=== PATIENT | female | born 1950 | race Caucasian/White ===

== ENCOUNTER 2020-12-10 08:02 | Outpatient (CLI) | payer MEDICARE, SELFPAY ==
--- NOTE | ~2020-12-10 | MM_ITS ---
EXAMINATION: MM screening [facility] BI w júnior HISTORY: Screening mammogram TECHNIQUE: Craniocaudal and mediolateral oblique 3-D tomosynthesis images were obtained and synthetic 2-D images were generated. CAD analysis was submitted and interpreted. COMPARISON: 10/10/2019, 10/04/2018, 07/01/2017, 01/16/2016 bilateral digital screening mammogram examin ations BREAST PARENCHYMAL COMPOSITION: There are scattered areas of fibroglandular density. FINDINGS: Stable low-density circumscribed approximately 7 mm opacity is noted in the superomedial quarles bareolar right breast on craniocaudal view. There is no evidence of suspicious mass, calcification, o r architectural distortion to suggest malignancy in either breast. There has been no suspicious inter malachi change. IMPRESSION: 1. No mammographic evidence of malignancy. 2. Recommend routine screening mammography in one year. BI-RADS Category 2: Benign finding(s). Reviewed, dictated and finalized at location A. PHONE ENGINEER
== END 2020-12-10 08:03 | disposition home or self-care (01) ==
LOC: ANHIMG 08:06
PROVIDERS: PCP Internal Medicine; Visit Provider Obstetrics & Gynecology
DX: Z12.31 Encounter for screening mammogram for malignant neoplasm of breast (principal)
CPT/HCPCS: 77063; 77067

== ENCOUNTER 2021-02-18 08:55 | Outpatient (CLI) | payer MEDICARE, SELFPAY ==
--- NOTE | ~2021-02-18 | US_ITS ---
EXAMINATION: US pelvic complete w TV DATE: 02/18/2021 09:38 INDICATION: Postmenopausal bleeding Comparison:No prior studies for comparison. TECHNIQUE: Multiple transabdominal and endovaginal sonographic images of the pelvis performed. FINDINGS: The uterus measures 6.6 x 2.6 x 4.2 cm. The endometrial complex measures 3 mm. The right ovary measures 1.5 x 1.0 x 0.9 cm and the left ovary measures 1.7 x 1.1 x 1.0 cm. There ar e small follicles in each ovary. Normal doppler signal in both ovaries. There is no free fluid in the pelvis. There are no abnormal masses seen on either side. IMPRESSION: 1. Unremarkable pelvic ultrasound. Reviewed, dictated and finalized at location B.
== END 2021-02-18 08:56 | disposition home or self-care (01) ==
PROVIDERS: PCP Internal Medicine; Visit Provider Obstetrics & Gynecology
DX: N95.0 Postmenopausal bleeding (principal)
CPT/HCPCS: 76830; 76856

== ENCOUNTER 2021-12-18 10:17 | Outpatient (CLI) | payer MEDICARE, SELFPAY ==
--- NOTE | ~2021-12-18 | MM_ITS ---
EXAMINATION: MM screening [facility] BI w júnior HISTORY: Screening mammogram TECHNIQUE: Craniocaudal and mediolateral oblique 3-D tomosynthesis images were obtained and synthetic 2-D images were generated. CAD analysis was submitted and interpreted. COMPARISON: 12/10/2020, 10/10/2019, 10/04/2018, 07/01/2017 BREAST PARENCHYMAL COMPOSITION: The breasts are almost entirely fatty. FINDINGS: Stable masses in the anterior thirds of the breasts are considered benign given the lack of interval change. There is no evidence of suspicious mass, calcification, or architectural distortion to suggest malignancy in either breast. There has been no suspicious interval change. IMPRESSION: 1. No mammographic evidence of malignancy. 2. Recommend routine screening mammography in one year. BI-RADS Category 2: Benign finding(s). Reviewed, dictated and finalized at location A. BURSEMENT COORDINATOR
== END 2021-12-18 10:18 | disposition home or self-care (01) ==
PROVIDERS: PCP Internal Medicine; Visit Provider Obstetrics & Gynecology
DX: Z12.31 Encounter for screening mammogram for malignant neoplasm of breast (principal)
CPT/HCPCS: 77063; 77067

== ENCOUNTER 2022-04-14 12:44 | Outpatient (CLI) | payer MEDICARE, SELFPAY ==
--- NOTE | ~2022-04-14 | DEXA_ITS ---
Bone Density Report Name: DELFINO MONTIEL Age: 72 Sex: Female Ethnicity: White Date of : 1950 Indication: osteopenia; height loss; postmenopausal Referring Provider: LISA LIPSCOMB Study: Bone densitometry was performed. Exam Date: April 14, 2022 Accession number: [id number] Bone Density: Region BMD T-score Z-score Classification AP Spine(L1, L2, L3) 0.894 -1.1 1.0 Osteopenia Femoral Neck (Left) 0.628 -2.0 -0.1 Osteopenia Total Hip (Left) 0.761 -1.5 0.1 Osteopenia Femoral Neck (Right) 0.623 -2.0 -0.1 Osteopenia Total Hip (Right) 0.734 -1.7 -0.1 Osteopenia Total Hip Mean 0.748 -1.6 0.0 Osteopenia World Health Organization criteria for BMD impression classify patients as: Normal (T-score at or above -1.0), Osteopenia (T-score between -1.0 and -2.5), or Osteoporosis (T-score at or below -2.5). 10-year Fracture Risk(1): Major Osteoporotic Fracture 12% Hip Fracture 2.5% Reported Risk Factors: [place] (), Neck BMD=0.623, BMI=30.9 (1) FRAX(R) Version 3.08. Fracture probability calculated for an untreated patient. Fracture probability may be lower if the patient has received treatment. Previous Exams: Region Exam Age BMD T-score BMD Change BMD Change Date g/cm2 vs Baseline vs Previous AP Spine (L1-L3) 04/14/2022 72 0.894 -1.1 0.010 (1.2%) 0.010 (1.2%) 10/04/2018 68 0.884 -1.2 Total Hip(Left) 04/14/2022 72 0.761 -1.5 -0.069 (-8.3%) -0.069 (-8.3%) 10/04/2018 68 0.830 -0.9 Total Hip(Right) 04/14/2022 72 0.734 -1.7 -0.136 (-15.6% -0.136 (-15.6% 10/04/2018 68 0.870 -0.6 *Denotes significance at 95% confidence level, LSC for AP Spine = 0.022 g/cm2, LSC for Total Hip = 0.027 g/cm2 Clinical Information Provided by Patient: Patient maximum height was 64.5 Menopause Age: 50 Drinks caffeinated beverages Onset of menses at age 11 Number of children 3 Impression: The patient has low bone mass, based on the Left Femoral Neck T-score. The patient has an estimated ten-year risk of hip fracture of 2.5% and an estimated ten-year risk of major fracture of 12%, based on the WHO FRAX algorithm. The BMD for the Total Hip(Left) decreased, changing by -8.3% since the last DXA exam. The BMD for the Total Hip(Right) decreased, changing by -15.6% since the last DXA exam. Discussion: BONE DENSITY IS LOW AT ONE OR MORE SKELETAL SITES. This patient's lowest T-score is low at one or more skeletal sites. It meets
== END 2022-04-14 12:45 | disposition home or self-care (01) ==
PROVIDERS: PCP Internal Medicine; Visit Provider Internal Medicine
DX: M85.88 Other specified disorders of bone density and structure, other site (principal); M85.852 Other specified disorders of bone density and structure, left thigh; M85.851 Other specified disorders of bone density and structure, right thigh
CPT/HCPCS: 77080

== ENCOUNTER 2023-02-02 01:19 | Day surgery (SDC) | payer MEDICARE, SELFPAY ==
[2023-01-25 10:30] VITALS: BMI 32.0
[2023-02-02 06:51] VITALS: BP 114/72; PULSE 79; RESP 16; TEMP 36.2; O2SAT 98
[2023-02-02] MEDS: LACTATED RINGERS 1,000 ML 150 ML IV CONT (06:59)
--- NOTE | 2023-02-02 07:26 | PM.HPGS ---
History of Present Illness History of Present Illness Consent: Risks, benefits, and alternatives have been discussed and questions answered. Patient agrees to proceed with procedure. Chief complaint: hx colon polyps Narrative: Zari Brito is a 72 year old female Presents for colonoscopy. Patient has a history of adenomatous colon polyp removed from the colon in 2018. Patient's current weight appetite and bowel movements are normal. Patient denies abdominal pain. She has had no bleeding. Family history is Is significant that her brother has had multiple colon polyps. Patient presents today for neoplasia screening. Review of Systems Review of Systems: Review of systems noncontributory. [facility] Past Medical History Medical History Anxiety History of vaginal delivery x 3 Surgical History Surgical History Hx of tubal ligation Family History Family History Father Family history of coronary artery disease Family history of hypercholesterolemia Hypertension Grandparent Family history of coronary artery disease Mother Family history of lung cancer Social History Social History Smoking packs per day: 1 Smoking cigarettes per day: 20.0 Years smoked: 5 Smoking pack-years: 5.00 Smoking status: Former smoker Tobacco type: cigarettes Second hand tobacco smoke exposure: No Smoking end date: 11/22/13 Alcohol intake: never Substance use: never Substance use type: does not use Lack of Transportation: No Lack of Food: Never True Current Housing: I Have Housing Concerned About Future Housing: No Difficulty Paying Gas/Electric Bills: No Difficulty Paying for Meds: No Currently Unemployed: No Education: Bachelor's Degree Difficulty w/ Childcare or Family Care: No Living arrangements: with family Spiritual care concerns: No Meds Home Medications and Allergies Home Medications Medication Instructions Recorded Confirmed Type cholecalciferol (vitamin D3) 125 5,000 unit PO DAILY 11/03/19 01/25/23 History mcg (5,000 unit) disintegrating tablet inulin 2 gram chewable tablet 2 gm PO DAILY 11/03/19 01/07/23 History (Fiber Gummies) omega-3 250 cc-geq-yiw-lutein 2.5 250 cap PO DAILY 11/03/19 01/25/23 History mg-zeaxanthin 0.5 mg capsule ([facility]) amlodipine 5 mg tablet See Rx Instructions .Route 08/28/22 01/25/23 Rx .COMPLEX #90 tabs pravastatin 80 mg tablet See Rx Instructions .Route 08/28/22 02/02/23 Rx .COMPLEX #90 tabs olmesartan 20 mg tablet 20 mg PO DAILY #90 tabs 01/07/23 01/25/23 Rx omega-3 fatty acids 1,000 mg 2,000 mg PO DAILY 01/07/23 01/25/23 History capsule (Fish Oil Concentrate) Allergies Allergy/AdvReac Type Severity Reaction Status Date / Time No Known Allergies Allergy Verified 02/02/23 06:48 Vital Signs Vital Signs - 24 hr 02/02/23 06:51 Temperature 97.1 F L Pulse Rate 79 Respiratory Rate 16 Blood Pressure 114/72 Pulse Oximetry 98 Oxygen Delivery Room Air Exam Narrative: Physical exam reveals patient to be alert. Vital signs stable. HEENT exam is unremarkable. Patient is anicteric. Lungs are clear to auscultation and percussion. Heart is without murmur or extra sounds. Abdomen bowel sounds present soft nontender with no organomegaly. Digital external rectal exam is normal. Assessment and Plan Assessment and plan (1) History of colon polyps: Code(s): Z86.010 - Personal history of colonic polyps Status: Acute Assessment and Plan: Patient has had previous history of colon polyps. Her brother recently was found to have colon polyps l as well suggesting family history of colon polyps.Plan for surveillance colonoscopy now and at 5 year intervals.
--- NOTE | 2023-02-02 08:01 | WPDANESEPPF ---
Anes - Initial Pre Proc Eval Procedure: Operation Date: 02/02/23 08:00 Proposed Procedures p Colonoscopy - Nam Bruner MD Date/Time: 02/02/23 08:01 Surgeon: Nam Bruner MD Pre Op Diagnosis: hx colon polyps Patient Data Age: 72 Gender: F Height: 1.6 m Weight: 80.8 kg Last Vital Signs Temp 97.1 F L 02/02/23 06:51 Pulse 79 02/02/23 06:51 Resp 16 02/02/23 06:51 BP 114/72 02/02/23 06:51 Pulse Ox 98 02/02/23 06:51 O2 Del Method Room Air 02/02/23 06:51 Allergies Allergy/AdvReac Type Severity Reaction Status Date / Time No Known Allergies Allergy Verified 02/02/23 06:48 Home Medications Medication Instructions Recorded Confirmed Type cholecalciferol (vitamin D3) 125 5,000 unit PO DAILY 11/03/19 01/25/23 History mcg (5,000 unit) disintegrating tablet inulin 2 gram chewable tablet 2 gm PO DAILY 11/03/19 01/07/23 History (Fiber Gummies) omega-3 250 hp-clh-app-lutein 2.5 250 cap PO DAILY 11/03/19 01/25/23 History mg-zeaxanthin 0.5 mg capsule ([facility]) amlodipine 5 mg tablet See Rx Instructions .Route 08/28/22 01/25/23 Rx .COMPLEX #90 tabs pravastatin 80 mg tablet See Rx Instructions .Route 08/28/22 02/02/23 Rx .COMPLEX #90 tabs olmesartan 20 mg tablet 20 mg PO DAILY #90 tabs 01/07/23 01/25/23 Rx omega-3 fatty acids 1,000 mg 2,000 mg PO DAILY 01/07/23 01/25/23 History capsule (Fish Oil Concentrate) Patient hx anesthesia problems: none Family hx anesthesia problems: none Results Review: All pre-operative results and documents have been reviewed as part of the pre-operative evaluation. [facility] Past Medical History Medical History Anxiety History of vaginal delivery x 3 Surgical History Surgical History Hx of tubal ligation Family History Family History Father Family history of coronary artery disease Family history of hypercholesterolemia Hypertension Grandparent Family history of coronary artery disease Mother Family history of lung cancer Social History Social History Smoking packs per day: 1 Smoking cigarettes per day: 20.0 Years smoked: 5 Smoking pack-years: 5.00 Smoking status: Former smoker Tobacco type: cigarettes Second hand tobacco smoke exposure: No Smoking end date: 11/22/13 Alcohol intake: never Substance use: never Substance use type: does not use Lack of Transportation: No Lack of Food: Never True Current Housing: I Have Housing Concerned About Future Housing: No Difficulty Paying Gas/Electric Bills: No Difficulty Paying for Meds: No Currently Unemployed: No Education: Bachelor's Degree Difficulty w/ Childcare or Family Care: No Living arrangements: with family Spiritual care concerns: No Anes - Eval Final PreProcedure Day of Procedure 02/02/23 08:01 Patient weight: obese Heart: regular rate and rhythm Lungs: clear to auscultation Airway: Mallampati scale class II Neurological: alert and oriented Last oral intake: >/= 8 hours ASA classification: II Emergent: no Anesthetic plan: proceed Anesthesia type and monitoring: general GIVS and standard monitoring Results Review: All pre-operative results and documents have been reviewed as part of the pre-operative evaluation. Informed Consent: The patient's anesthetic plan and its attendant risks and benefits were discussed with the patient/family/POA. Questions were solicited and answers provided to the satisfaction of the patient/family/POA.
[2023-02-02] MEDS: SIMETHICONE ORAL SUSPENSION 20 MG/0.3 ML 30 ML BOTTLE 0.6 ML IRRIGATION (08:21)
[2023-02-02 08:30] VITALS: BP 125/73; PULSE 87; RESP 17; O2SAT 98
[2023-02-02 08:40] VITALS: BP 126/85; PULSE 90; RESP 15; O2SAT 98
[2023-02-02 08:50] VITALS: BP 131/79; PULSE 74; RESP 18; O2SAT 100
== END 2023-02-02 08:57 | disposition home or self-care (01) ==
PROVIDERS: PCP Internal Medicine; Visit Provider Internal Medicine Gastroenterology
PROC: 0DJD8ZZ Inspection of Lower Intestinal Tract, Via Natural or Artificial Opening Endoscopic (ICD-10-PCS; CPT 45378; principal; 2023-02-02 08:00)
DX: K64.8 Other hemorrhoids (principal); F41.9 Anxiety disorder, unspecified; E66.9 Obesity, unspecified; Z68.31 Body mass index [BMI] 31.0-31.9, adult; Z86.010 Personal history of colon polyps; Z87.891 Personal history of nicotine dependence; Z79.899 Other long term (current) drug therapy; Z83.71 Family history of colonic polyps
CPT/HCPCS: 45378; J2704; J7120

== ENCOUNTER 2023-03-16 07:21 | Outpatient (CLI) | payer MEDICARE, SELFPAY ==
--- NOTE | ~2023-03-16 | MM_ITS ---
EXAMINATION: MM screening [facility] BI w júnior HISTORY: Screening mammogram TECHNIQUE: Craniocaudal and mediolateral oblique 3-D tomosynthesis images were obtained and synthetic 2-D images were generated. CAD analysis was submitted and interpreted. COMPARISON: 12/18/2021, 12/10/2020, 10/10/2019 bilateral screening mammogram examinations BREAST PARENCHYMAL COMPOSITION: The breasts are almost entirely fatty. FINDINGS: Approximately 3 mm irregular mass is noted in the inferomedial left subareolar area. Diagno stic left mammogram and ultrasound recommended. Stable circumscribed low density opacity in the anterior superomedial right subareolar area, not sign ificantly changed since 10/10/2019. No other significant new or developing density since 10/10/2019 i s noted. IMPRESSION: 1. 3 mm irregular inferomedial left subareolar breast mass 2. Diagnostic left mammogram and ultrasound are recommended BI-RADS Category 0: Incomplete: Needs additional imaging evaluation. Reviewed, dictated and finalized at location A.
== END 2023-03-16 07:22 | disposition home or self-care (01) ==
PROVIDERS: PCP Internal Medicine; Visit Provider Nurse Practitioner
DX: Z12.31 Encounter for screening mammogram for malignant neoplasm of breast (principal); N63.42 Unspecified lump in left breast, subareolar
CPT/HCPCS: 77063; 77067

== ENCOUNTER 2023-04-06 12:55 | Outpatient (CLI) | payer MEDICARE, SELFPAY ==
--- NOTE | ~2023-04-06 | MM_ITS ---
EXAMINATION: MM diagnostic [facility] LT w júnior HISTORY: Left breast mass on screening mammogram TECHNIQUE: Additional 3-D tomosynthesis images of the left breast were performed and synthetic 2-D im ages were generated. CAD analysis was submitted and interpreted. COMPARISON: Prior mammograms dating back to 07/01/2017 FINDINGS: With spot compression, the subareolar left breast mass has a stable appearance when compare d to prior mammograms. There has been no suspicious interval change. No suspicious calcification or a rchitectural distortion are identified. IMPRESSION: 1. No mammographic evidence of malignancy. 2. Recommend routine screening mammography in one year. BI-RADS Category 2: Benign finding(s). Reviewed, dictated and finalized at location A.
== END 2023-04-06 12:56 | disposition home or self-care (01) ==
PROVIDERS: PCP Family Medicine; Visit Provider Nurse Practitioner
DX: N63.20 Unspecified lump in the left breast, unspecified quadrant (principal); R92.8 Other abnormal and inconclusive findings on diagnostic imaging of breast
CPT/HCPCS: 77061; 77065; G0279

== ENCOUNTER 2023-07-23 07:54 | Outpatient (CLI) | payer MEDICARE, SELFPAY ==
--- NOTE | ~2023-07-23 | CT_ITS ---
CT Scan of the Chest without Contrast: Clinical Indication: Lung cancer screening, personal history of nicotine dependence Technique: Contiguous sections were acquired throughout the chest without intravenous contrast. Dose reduction technique was used on this scan by utilizing automated exposure control and iterative recon struction technique. The dose-length product (DLP) was 148.61 mGy-cm. Findings: There is no evidence of any significant mediastinal, hilar or axillary lymphadenopathy. Small calcifi ed left hilar lymph nodes are present. The mediastinal soft tissues appear normal. Small hiatal herni a present. There is no evidence of pleural or pericardial effusion. Lung granulomas are present. No other pulmonary nodule seen. Images through the upper abdomen reveal no abnormalities. Impression: Lung RADS 2: Benign appearance. 12 month follow-up CT advised. Small hiatal hernia. Reviewed, dictated and finalized at [facility]. Impression: Lung RADS 2: Benign appearance. 12 month follow-up CT advised. Small hiatal hernia.
== END 2023-07-23 07:55 | disposition home or self-care (01) ==
LOC: ANHIMG 07:56
PROVIDERS: PCP Family Medicine; Visit Provider Family Medicine
DX: Z12.2 Encounter for screening for malignant neoplasm of respiratory organs (principal); Z87.891 Personal history of nicotine dependence
CPT/HCPCS: 71271

== ENCOUNTER 2024-05-17 12:34 | Outpatient (CLI) | payer MEDICARE, SELFPAY ==
--- NOTE | ~2024-05-17 | DEXA_ITS ---
? Bone Density Report? Name:? DELFINO MONTIEL Patient ID:??? [id number] Age:? 74 Sex:? Female Ethnicity:? White Date of : 1950 Indication: postmenopausal; screening for osteoporosis; height loss; Referring Provider: Bunny Mahan Study: Bone densitometry was performed. Exam Date: May 17, 2024 Accession number: [id number] Bone Density: Region? BMD??? T-score? Z-score?? Classification AP Spine(L1, L2, L3)? 0.825?? -1.8?0.5? Osteopenia Femoral Neck (Left)? 0.595?? -2.3? -0.3? Osteopenia Total Hip (Left)? 0.792?? -1.2? 0.5? Osteopenia Femoral Neck (Right)? 0.543?? -2.8? -0.7? Osteoporosis Total Hip (Right)? 0.763?? -1.5? 0.3? Osteopenia Femoral Neck Mean? 0.569?? -2.5? -0.5? Osteoporosis Total Hip Mean? 0.778?? -1.3? 0.4?Osteopenia World Health Organization criteria for BMD impression classify patients as: Normal (T-score at or above -1.0), Osteopenia (T-score between -1.0 and -2.5), or Osteoporosis (T-score at or below -2.5). 10-year Fracture Risk: FRAX not reported because: ? Some T-score for Spine Total or Hip Total or Femoral Neck at or below -2.5 Clinical Information Provided by Patient: Has used the following medications: Boniva (i.e. ibandronate), Fosamax (i.e. alendronate), Vitamin D, multi Patient maximum height was 64 Menopause Age: 42 No regular weight bearing exercise Does not regularly consume dairy products Drinks caffeinated beverages Onset of menses at age 11 Number of children 3 Impression: The patient has osteoporosis, based on the Right Femoral Neck T- score. Discussion: INCREASED RISK OF FRACTURE. BONE DENSITY IS UNDESIRABLY LOW AT ONE OR MORE SKELETAL SITES, CONSISTENT WITH POSTMENOPAUSAL OSTEOPOROSIS. This patient's lowest T-score meets the World Health Organization's (WHO) criteria for osteoporosis at one or more sites (T-score -2.5 or below).? In untreated patients, the risk of osteoporotic fracture increases approximately two-fold for each 1.0 SD decrease in T-score.? Low bone density is not the only risk factor for fracture; also consider factors such as patient's age, frailty or poor health, risk of falling, risk of injury, previous osteoporotic fracture, family history of osteoporosis, cigarette smoking, low body weight, etc.? Not everyone with low bone mineral density has osteoporosis; osteomalacia and other metabolic bone disorders should also be considered. Patients who have osteoporosis should be evaluated for specific diseases and conditions (secondary causes) that may cause or contribute to bone loss.? The [place] [employer]ocrin[employer] (AACE) and National Osteoporosis Foundation (NOF) recommend
--- NOTE | ~2024-05-17 | MM_ITS ---
EXAMINATION: MM screening [facility] BI w júnior HISTORY: Screening mammogram TECHNIQUE: Craniocaudal and mediolateral oblique 3-D tomosynthesis images were obtained and synthetic 2-D images were generated. CAD analysis was submitted and interpreted. COMPARISON: 04/06/2023, 03/16/2023, 12/18/2021 BREAST PARENCHYMAL COMPOSITION:Not Dense. The breasts are almost entirely fatty FINDINGS: Stable bilateral breast masses/densities. No suspicious mass, calcification, or architectur al distortion are identified in either breast to suggest malignancy. There has been no suspicious int erval change. IMPRESSION: No mammographic evidence of malignancy. Recommend routine screening mammography in one year. BI-RADS Category 2: Benign finding(s). Reviewed, dictated and finalized at location .
== END 2024-05-17 12:35 | disposition home or self-care (01) ==
PROVIDERS: PCP Family Medicine; Visit Provider Obstetrics & Gynecology
DX: Z12.31 Encounter for screening mammogram for malignant neoplasm of breast (principal); Z78.0 Asymptomatic menopausal state; M81.0 Age-related osteoporosis without current pathological fracture; M85.89 Other specified disorders of bone density and structure, multiple sites
CPT/HCPCS: 77063; 77067; 77080

== ENCOUNTER 2024-08-28 13:44 | Outpatient (CLI) | payer MEDICARE, SELFPAY ==
--- NOTE | ~2024-08-28 | CT_ITS ---
CT Scan of the Chest without Contrast: Clinical Indication: Lung cancer screening, nicotine dependence Technique: Contiguous sections were acquired throughout the chest without intravenous contrast. Dose reduction technique was used on this scan by utilizing automated exposure control and iterative recon struction technique. The dose-length product (DLP) was 161.33 mGy-cm. COMPARISON: 07/23/2023 Findings: There is no evidence of any significant mediastinal, hilar or axillary lymphadenopathy. The mediastin al soft tissues appear normal. There is no evidence of pleural or pericardial effusion. Calcified granulomas are noted. No noncalcified or otherwise suspicious pulmonary nodule seen. Images through the upper abdomen reveal small hiatal hernia. Impression: Lung RADS 2: Benign appearance. 12 month follow-up screening CT advised. Reviewed, dictated and finalized at [facility]. Impression: Lung RADS 2: Benign appearance. 12 month follow-up screening CT advised.
== END 2024-08-28 13:45 | disposition home or self-care (01) ==
PROVIDERS: PCP Family Medicine; Visit Provider Family Medicine
DX: Z12.2 Encounter for screening for malignant neoplasm of respiratory organs (principal); Z87.891 Personal history of nicotine dependence
CPT/HCPCS: 71271

== ENCOUNTER 2025-02-03 23:56 | Emergency (ER) | payer MEDICARE, SELFPAY ==
--- NOTE | ~2025-02-03 | XR_ITS ---
XR ankle RT min 3V Ordering provider: Kelsy Carolina MD History: . fall, pain and swelling . Comparison: None. FINDINGS: BONES: No acute fracture or dislocation. JOINT SPACES: Normal. SOFT TISSUES: Soft tissue swelling over the lateral malleolus. Fusion Calcaneal spur. IMPRESSION: No acute osseous abnormality of the right ankle. Reviewed, dictated and finalized at location A.
[2025-02-04 00:12] VITALS: BP 114/71; PULSE 74; RESP 16; TEMP 36.3; O2SAT 98
[2025-02-04 03:18] VITALS: BP 129/82; PULSE 75; RESP 17; O2SAT 97
--- NOTE | 2025-02-04 05:02 | ED_ITS ---
HPI - Extremity Injury (Lower) General Chief Complaint: Extremity Injury, Lower Stated Complaint: right leg/ ankle swelling Time Seen by Provider: 02/04/25 05:00 Source: patient Mode of arrival: ambulatory Limitations: no limitations History of Present Illness HPI Narrative: Patient presents with acute onset right ankle pain and swelling which is transferring from the couch to her bed and felt like her ankle gave out. Exact mechanism of injury (eversion/inversion/etc) unknown. No prior injury / surgery to this extremity. In the process she stumbled and also has a superficial abrasion to her left knee. No history of liver kidney disease or injury. Patient elevated her foot and placed ice on it which she stated helped it. At baseline, she has been trying to exercise more and stay active. Confirms her PCP is Marcin Arenas . Pain in the ankle is primarily the anterolateral aspect. She has not yet taken any oral pain medicine prior to arrival. Related Data Home Medications ?Medication ?Instructions ?Recorded ?Confirmed ?Last Taken ?Type cholecalciferol (vitamin D3) 125 5,000 unit PO DAILY 11/03/19 09/20/24 02/01/23 History mcg (5,000 unit) disintegrating tablet omega-3 250 th-egj-ezo-lutein 2.5 250 cap PO DAILY 11/03/19 09/20/24 02/01/23 History mg-zeaxanthin 0.5 mg capsule ([employer]) omega-3 fatty acids 1,000 mg 2,000 mg PO DAILY 01/07/23 09/20/24 02/01/23 History capsule (Fish Oil Concentrate) larewyotonvx-kbuibtqw-vhhrohs-folic 1 tablet PO DAILY 04/29/23 09/20/24 Unknown History acid 400 mcg-vit K1 20 mcg tablet (One-A-Day Women's 50 Plus) cetirizine 10 mg capsule (Zyrtec) 10 mg PO DAILY PRN allergies 05/02/24 09/20/24 Unknown History peg 400-propylene glycol 0.4 %-0.3 1 drp EACH EYE DAILY PRN Dry Eyes 05/02/24 09/20/24 Unknown History % eye drops (Systane Ultra) esomeprazole magnesium 20 mg 20 mg PO DAILY 07/27/24 09/20/24 Unknown History capsule,delayed release denosumab 60 mg/mL subcutaneous 60 mg subcut [id number] 01/30/25 Unknown History syringe (Prolia) Allergies Allergy/AdvReac Type Severity Reaction Status Date / Time No Known Allergies Allergy Verified 02/04/25 03:18 PMFSH Past Medical History Medical History Shingles Anxiety History of vaginal delivery x 3 Surgical History Surgical History Hx of tubal ligation Family History Family History Father Family history of coronary artery disease Family history of hypercholesterolemia Hypertension Grandparent Family history of coronary artery disease Mother Family history of lung cancer Social History Social History Smoking packs per day: 1 Smoking cigarettes per day: 20.0 Years smoked: 11 Smoking pack-years: 11.00 Smoking status: Former smoker Tobacco type: cigarettes Second hand tobacco smoke exposure: No Smoking end date: 11/22/13 Alcohol intake: never Substance use: never Substance use type: does not use Lack of Transportation: No Lack of Food: Never True Current Housing: I Have Housing Concerned About Future Housing: No Difficulty Paying Gas/Electric Bills: No Difficulty Paying for Meds: No Currently Unemployed: No Education: Bachelor's Degree Difficulty w/ Childcare or Family Care: No Living arrangements: with family Spiritual care concerns: No Exam Narrative: GENERAL: Well-appearing, well-nourished, and in no acute distress. HEAD: Normocephalic, atraumatic. EYES: Non injected, non icteric ENT: Nares clear, no rhinorrhea or epistaxis. NECK: Supple. CHEST: Speaking in full sentences. No respiratory distress. x HEART: Regular rate and rhythm. Strong palpable Dp pulse on R ABDOMEN: Soft, nondistended. EXTREMITIES: Normal range of motion. 5/5 strength with right ankle dorsiflexion, plantar flexion, eversion, inversion. Patient has infusion overlying lateral malleolus on the right extremity. Distal calf nontender to palpation or compression SKIN: Warm, dry. Superficial abrasion overlying anterior aspect of left without active bleeding. No laceration/abrasion at R ankle/foot. No ecchymosis on plantar aspect of R foot. NEURO: No focal deficits. Alert and oriented x3. Sensation intact throughout foot. PSYCH: Normal mood and affect. Course Vital Signs Vital signs: Vital Signs Temperature 97.4 F L 02/04/25 00:12 Pulse Rate 74 02/04/25 00:12 Respiratory Rate 16 02/04/25 00:12 Blood Pressure 114/71 02/04/25 00:12 Pulse Oximetry 98 02/04/25 00:12 Oxygen Delivery Room Air 02/04/25 00:12 Temperature 97.4 F L 02/04/25 00:12 Pulse Rate 75 02/04/25 03:18 Respiratory Rate 17 02/04/25 03:18 Blood Pressure 129/82 02/04/25 03:18 Pulse Oximetry 97 02/04/25 03:18 Oxygen Delivery Room Air 02/04/25 00:12 MDM - Extremity Injury (Lower) MDM Narrative Medical decision making narrative: Patient presents with acute onset right ankle pain and swelling when her ankle gave out when moving off of the couch. Exact mechanism of injury unknown. She did also stumble and has a small superficial abrasion on L knee. 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 In the emergency department she is afebrile with normal vital signs. No fracture/dislocation. Patient given analgesic medication. Discussed natural history/expected progression of injury and healing but that occult fractures and injuries can occur. Discussed R-I-C-E. Patient to be given MAGNO wrap. Advised patient follow-up with her primary care physician next approximately 5 days if pain not improving as she may need further intervention/work up (advanced imaging, alternative pain medication, physical therapy, etc.). Verifies understanding and amenable with plan. Stable for discharge. Prescribed [id number] analgesics medication. Differential Diagnosis Differential diagnosis: Likely ankle sprain and strain, ankle fracture and other (Dislocation) Imaging Data Attestation: I personally reviewed and interpreted this imaging study as follows: My impression: No fracture dislocation on my independent interpretation of x-ray. Discharge Plan Discharge Clinical Impression: Right ankle sprain Patient Disposition: Home, Self-Care Condition: Stable Instructions: Antibiotic Form, Ankle Sprain (DC), Ankle Strain (ED) Additional Instructions: As we discussed, remember R-I-C-E (rest, ice, compression, elevation). Acetaminophen/Tylenol (maximum 4000 mg per day) is safe to take with NSAIDs (ibu profen/Motrin) for pain relief. Follow-up with primary care physician if not improving in the next 3- 5 days as he may require additional workup (advanced imaging, alternative pain medication, physical therapy, etc.). Return to the emergency department with any new or worsening symptoms. Patient Language: [place] Prescriptions: New ibuprofen 600 mg tablet 600 mg PO TID PRN (Reason: pain) Qty: 30 0RF acetaminophen 500 mg capsule 1,000 mg PO Q6H PRN (Reason: pain) Qty: 30 0RF No Action Systane Ultra 0.4-0.3 % drops 1 drp EACH EYE DAILY PRN (Reason: Dry Eyes) Zyrtec 10 mg capsule 10 mg PO DAILY PRN (Reason: allergies) One-A-Day Women's 50 Plus 400-20 mcg tablet 1 tablet PO DAILY nystatin 100,000 unit/gram powder 1 applic topical TID PRN (Reason: rash) Qty: 60 2RF esomeprazole magnesium 20 mg capsule,delayed release(DR/EC) 20 mg PO DAILY Prolia 60 mg/mL syringe 60 mg subcut [id number] cholecalciferol (vitamin D3) 5,000 unit tablet,disintegrating 5,000 unit PO DAILY [facility] 250-2.5-0.5 mg capsule 250 cap PO DAILY omega-3 fatty acids [Fish Oil Concentrate] 1,000 mg capsule 2,000 mg PO DAILY esomeprazole magnesium 20 mg capsule,delayed release(DR/EC) See Rx Instructions .ROUTE .COMPLEX Qty: 90 0RF Dose Instruction: TAKE 1 CAPSULE BY MOUTH DAILY Rx Instructions: TAKE 1 CAPSULE BY MOUTH DAILY amlodipine 5 mg tablet See Rx Instructions .ROUTE .COMPLEX Qty: 90 0RF Dose Instruction: TAKE 1 TABLET BY MOUTH DAILY Rx Instructions: TAKE 1 TABLET BY MOUTH DAILY pravastatin 80 mg tablet See Rx Instructions .ROUTE .COMPLEX Qty: 90 0RF Dose Instruction: TAKE 1 TABLET BY MOUTH DAILY Rx Instructions: TAKE 1 TABLET BY MOUTH DAILY olmesartan 20 mg tablet 20 mg PO DAILY Qty: 90 1RF Follow-up/Referrals: Marcin Arenas MD [Primary Care Provider] - Stand Alone Forms: Work/School Release IP Time of Disposition: 05:12
[2025-02-04] MEDS: HYDROcodone/acetaminophen (*CRX) 5-325 MG TABLET 1 TAB PO (05:14)
[2025-02-04] MEDS: KETOROLAC 30 MG/ML VIAL (*BKC) 15 MG IM (05:15)
== END 2025-02-04 05:31 | disposition home or self-care (01) ==
LOC: ANHED 02-04 05:20
PROVIDERS: Emergency Provider Student in an Organized Health Care Education/Training Program; PCP Family Medicine
DX: S93.401A Sprain of unspecified ligament of right ankle, initial encounter (principal); Z87.891 Personal history of nicotine dependence; Z79.620 Long term (current) use of immunosuppressive biologic; Z79.899 Other long term (current) drug therapy; W18.40XA Slipping, tripping and stumbling without falling, unspecified, initial encounter
CPT/HCPCS: 73610; 96372; 99283; A9270; J1885

== ENCOUNTER 2025-04-10 09:27 | Inpatient (IN) | payer MEDICARE, SELFPAY ==
[2025-04-10] VITALS (11 sets, daily range): BP systolic 109–130; BP diastolic 63–80; PULSE 72–90; RESP 14–20; TEMP 36.4–36.8; O2SAT 94–100; BMI 33.8
--- NOTE | ~2025-04-10 | XR_ITS ---
XR chest 2V Ordering provider: Kelsy Carolina MD History: 75 years Female with . sob . Comparison: February 03, 2007 FINDINGS: MEDIASTINUM: The cardiac silhouette is not enlarged. LUNGS: No effusions or pneumothorax. Bilateral basal atelectasis versus pneumonia is noted. OTHER: No free air under the diaphragm. Degenerative changes of the spine. IMPRESSION: Bibasilar atelectasis versus pneumonia. Follow-up advised. Reviewed, dictated and finalized at location A.
--- NOTE | ~2025-04-10 | US_ITS ---
EXAMINATION: US venous doppler [facility] DATE: 04/10/2025 12:11 INDICATION: Pain TECHNIQUE: Grayscale ultrasound images without and with compression and Doppler ultrasound images of the bilateral lower extremity veins were obtained. COMPARISON: None. FINDINGS: The visualized portions of right common femoral vein, profunda (deep) femoral vein, femoral vein, pop liteal vein, peroneal veins, posterior tibial veins, and greater saphenous vein outflow are patent. The visualized portions of left common femoral vein, profunda femoral vein, femoral vein, popliteal v ein, posterior tibial veins, and greater saphenous vein outflow are patent. Noncompressibility and absence of flow is identified within the left peroneal vein which is distended , consistent with acute deep venous thrombosis. IMPRESSION: Acute DVT within the left peroneal vein, as detailed above Reviewed, dictated and finalized at location A.
--- NOTE | ~2025-04-10 | CT_ITS ---
CTA chest PE abdomen pel Ordering provider: Prema Guadarrama PA-C History: . L shoulder/chest pain, sob, pleuritic pain . Comparison: August 28, 2024 Technique: CT angiogram chest was performed following timed intravenous injection of contrast. Thin s lice axial images and reformatted coronal images were obtained. Three dimensional reformatted images of the chest were also obtained using a [employer] workstation. Also, CT of the abdomen and pelvis was pe rformed with IV contrast. . Automated exposure control and iterative reconstruction technique were e mployed. The dose-length product was 1265.96 mGy-cm. 100 mL Omnipaque 350 was given IV. FINDINGS: CHEST: --PULMONARY ARTERIES: pulmonary embolism is noted in the left and to lesser extent the right segmenta l branches. Minimal right ventricular strain is noted.. --VISUALIZED THORACIC INLET: Normal. --MEDIASTINUM: Aorta/coronary arteries: Mild atheromatous disease. Heart/other: The heart is not enlarged. Lymph nodes: No mediastinal or hilar adenopathy. --LUNGS: Groundglass appearance is seen in the right lung. Minimal left pleural effusion with adjacent atelect asis. No pulmonary nodules or masses. No pneumothorax. --MUSCULOSKELETAL: Bones: Age appropriate degenerative changes of the spine. Superficial soft tissues: The superficial soft tissues are normal. ABDOMEN/PELVIS: --MUSCULOSKELETAL: Superficial soft tissues: The superficial soft tissues are normal. Bones: Age appropriate degenerative changes of the spine. --UPPER ABDOMINAL ORGANS: Liver: Hepatomegaly. Gallbladder: Normal. Spleen: Normal. Stomach/duodenum: Large sliding hiatus hernia. Pancreas: Atrophic pancreas. Adrenals: Slightly prominent medial limb of the left adrenal gland.. Kidneys: Bilateral tiny cysts. --PELVIC ORGANS: The bladder is normal. No bladder stones. Prominent vessels around the uterus which may indicate pelvic congestion syndrome. Small left ovarian cyst measuring 1.8 cm. --BOWEL AND MESENTERY: Colon: No evidence of diverticulitis.. Normal appendix. Small Bowel: Normal. No obstruction. Peritoneum/mesentery: No free air or free fluid. No mesenteric lymphadenopathy. --RETROPERITONEUM: Mild atheromatous disease of the abdominal aorta. No retroperitoneal lymphadenop athy. IMPRESSION: CHEST: 1. Pulmonary embolism with thrombi in the segmental branches. Minimal right ventricular strain. ABDOMEN/PELVIS: 1. No evidence of appendicitis, diverticulitis or intestinal obstruction. 2. Sliding hiatus hernia. 3. Hepatomegaly. 4. Prominent vessels in the pelvis which may indicate pelvic congestion syndrome. 5. Atrophic pancreas. Physician: Prema Guadarrama PA-C Was notified with the result of the patient at 12:12 PM on April 10, 2025. Reviewed, dictated and finalized at location A. IMPRESSION: CHEST: 1. Pulmonary embolism with thrombi in the segmental branches. Minimal right ve ntricular strain. ABDOMEN/PELVIS: 1. No evidence of appendicitis, diverticulitis or intestinal obstruction. 2. Sliding hiatus hernia. 3. Hepatomegaly. 4. Prominent vessels in the pelvis which may indicate pelvic congestion syndro me. 5. Atrophic pancreas. Physician: Prema Guadarrama PA-C Was notified with the result of the patient at 12:12 PM on April 10, 2025.
--- NOTE | 2025-04-10 09:38 | ECG_ITS ---
Test Date: 2025-04-10 09:41:53 Measurements Intervals [place] Rate: 87 P: 30 FL: 161 QRS: 37 QRSD: 118 T: 21 QT: 367 QTc: 442 Interpretive Statements SINUS RHYTHM LOW QRS VOLTAGE IN PRECORDIAL LEADS [QRS DEFLECTION < 1.0 mV IN CHEST LEADS] INCOMPLETE RIGHT BUNDLE BRANCH BLOCK [90+ ms QRS DURATION, TERMINAL R IN V1/V2, 40+ ms S IN I/aVL/V4/V5/V6] No previous ECG available for comparison Electronically Signed On 04-10-2025 13:41:24 CDT by Danial Gan M.D.
[2025-04-10 10:11] LABS: Alanine Aminotransferase 21 U/L (6-35); Albumin Level 4.1 g/dL (3.5-5.1); Alkaline Phosphatase 55 U/L (38-126); Anion Gap 7 mmol/L (4-12); Aspartate Amino Transferase 32 U/L (14-36); Bilirubin,Total 0.6 mg/dL (0.2-1.3); Blood Urea Nitrogen 12 mg/dL (7-17); Calcium 8.7 mg/dL (8.4-10.2); Carbon Dioxide 25 mmol/L (22-30); Chloride 107 mmol/L (98-107); Estimated CRCL calculation 71 ml/min; Estimated Glomerular Filt Rate > 60; Glucose 99 mg/dL (65-110); Potassium 4.2 mmol/L (3.4-5.0); Sodium 139 mmol/L (137-145)
[2025-04-10 10:13] LABS: Basophils Percent Auto 0.5 % (0.2-1.2); Eosinophils Absolute Auto 0.1 K/mm3 (0-0.3); Eosinophils Percent Auto 1.5 % (0-4.4); Hemoglobin 12.6 g/dL (12.0-15.0); Immature Granulocyte Absolute 0.02 K/mm3 (0.00-0.031); Immature Granulocyte Percent A 0.3 % (0-0.5); Lymphocytes Absolute Auto 1.29 K/mm3 (0.9-3.2); Lymphocytes Percent Auto 17.5 % (18.3-44.2); Mean Corpuscular HGB Conc 32.3 g/dl (32-36); Mean Corpuscular Volume 89.9 fl (80-100); Mean Platelet Volume 9.9 fl (7.4-10.4); Monocytes Absolute Auto 0.6 K/mm3 (0.1-0.6); Monocytes Percent Auto 8.7 % (2.6-8.5); Neutrophils Absolute Auto 5.3 K/mm3 (1.3-6.7); Neutrophils Percent Auto 71.5 % (45.5-73.1); Platelet Count Result 318 k/mm3 (150-375); Red Blood Count 4.34 M/mm3 (4.2-5.4); Red Cell Distribution Width 14.4 % (11.5-14.5); White Blood Count 7.4 K/mm3 (4.5-10.0)
[2025-04-10 10:46] LABS: Troponin I < 0.012 ng/mL (0.000-0.034)
--- NOTE | 2025-04-10 11:28 | ED_ITS ---
HPI - SOB/Dyspnea General Chief Complaint: Shortness of Breath/Dyspnea <Prema Guadarrama PA-C - Last Filed: 04/10/25 13:13> Stated Complaint: SOB, left shoulder pain <Prema Guadarrama PA-C - Last Filed: 04/10/25 13:13> Time Seen by Provider: 04/10/25 09:47 <Prema Guadarrama PA-C - Last Filed: 04/10/25 13:13> Source: patient <RAJENDRA Penny Last Filed: 04/10/25 13:13> Mode of arrival: ambulatory <RAJENDRA Penny Last Filed: 04/10/25 13:13> Limitations: no limitations <RAJENDRA Penny Last Filed: 04/10/25 13:13> History of Present Illness HPI Narrative: Patient is a 75-year-old female, with PMH of HTN, HLD, who presents the ED with report of shortness of breath. Patient reports she recently traveled to and from [place]. Over the past weekend, she had been experiencing some shortness of breath, dyspnea with exertion. She also report having intermittent aching/cramping in her legs, pleuritic pain, spasms in her left upper abdomen. She took ibuprofen for this with improvement. She returned home on Wednesday and report having persistent symptoms when she woke up this morning. Also report having some discomfort throughout her left shoulder, left anterior chest. She denied having chest pain over the weekend with exertion. She mentions that the abdominal pain has resolved. Denies recent cough or cold symptoms, fevers. Denies history of previous heart disease. <Prema Guadarrama PA-C - Last Filed: 04/10/25 13:13> Related Data Home Medications: Home Medications ?Medication ?Instructions ?Recorded ?Confirmed ?Last Taken ?Type cholecalciferol (vitamin D3) 125 5,000 unit PO DAILY 11/03/19 04/10/25 04/10/25 History mcg (5,000 unit) disintegrating tablet omega-3 250 gd-uzg-grw-lutein 2.5 250 cap PO DAILY 11/03/19 04/10/25 04/10/25 History mg-zeaxanthin 0.5 mg capsule ([facility]) omega-3 fatty acids 1,000 mg 2,000 mg PO DAILY 01/07/23 04/10/25 04/10/25 History capsule (Fish Oil Concentrate) peg 400-propylene glycol 0.4 %-0.3 1 drp EACH EYE DAILY PRN Dry Eyes 05/02/24 04/10/25 04/10/25 History % eye drops (Systane Ultra) esomeprazole magnesium 20 mg 20 mg PO DAILY 07/27/24 04/10/25 04/09/25 History capsule,delayed release denosumab 60 mg/mL subcutaneous 60 mg subcut [id number] 01/30/25 04/10/25 Unknown History syringe (Prolia) <Prema Guadarrama PA-C - Last Filed: 04/10/25 13:13> Allergies/Adverse Reactions: Allergies Allergy/AdvReac Type Severity Reaction Status Date / Time No Known Allergies Allergy Verified 04/10/25 09:41 <RAJENDRA Penny Last Filed: 04/10/25 13:13> Review of Systems 2 Review of Systems: All systems reviewed & are unremarkable except as noted in HPI. <RAJENDRA Penny Last Filed: 04/10/25 13:13> All systems reviewed & are unremarkable except as noted in HPI and below < Prema Guadarrama PA-C - Last Filed: 04/10/25 13:13> [facility] Past Medical History Medical History: Medical History Pulmonary embolism 04/10/2025, post-travel DVT (deep venous thrombosis) 04/10/2025, post-travel GERD (gastroesophageal reflux disease) Age related osteoporosis Mixed hyperlipidemia Essential (primary) hypertension Shingles Anxiety History of vaginal delivery x 3 <RAJENDRA Penny Last Filed: 04/10/25 13:13> Surgical History Surgical History: Surgical History Hx of tubal ligation <RAJENDRA Penny Last Filed: 04/10/25 13:13> Family History Family History: Family History Father Family history of coronary artery disease Family history of hypercholesterolemia Hypertension Grandparent Family history of coronary artery disease Mother Family history of lung cancer <RAJENDRA Penny Last Filed: 04/10/25 13:13> Social History Social History: Social History Smoking packs per day: 1 Smoking cigarettes per day: 20.0 Years smoked: 11 Smoking pack-years: 11.00 Smoking status: Former smoker Tobacco type: cigarettes Second hand tobacco smoke exposure: No Smoking end date: 04/10/25 Alcohol intake: never Substance use: never Substance use type: does not use Do You Feel Safe in your Home?: Yes Lack of Transportation: No Lack of Food: Never True Current Housing: I Do Not Have Housing Concerned About Future Housing: No Difficulty Paying Gas/Electric Bills: No Difficulty Paying for Meds: No Currently Unemployed: No Education: Bachelor's Degree Difficulty w/ Childcare or Family Care: No Living arrangements: with family Spiritual care concerns: No <RAJENDRA Penny Last Filed: 04/10/25 13:13> Exam 2 Narrative: GENERAL: Elderly but well appearing, obese with BMI of 30.6, non-toxic, in no acute distress. HEAD: Normocephalic, atraumatic. RESPIRATORY: Airway patent, respirations nonlabored. Mild rhonchi in bases bilaterally. No distress. CARDIOVASCULAR: Regular rate and rhythm without murmurs, rubs, or gallops. ABDOMINAL: Soft, no significant tenderness, nondistended. Normoactive BS. MUSCULOSKELETAL: Moves all extremities. No gross deformities. Very mild tenderness to palpation over left anterior chest wall. No appreciable to peripheral edema. No calf tenderness. SKIN: Warm, dry, normal color. NEURO: A&O X3. Speech clear. Cranial nerves II-XII grossly intact. Steady gait. No ataxic movements. PSYCHIATRIC: Appropriate mood and affect. Normal interaction. <RAJENDRA Penny Last Filed: 04/10/25 13:13> Course INSTALL AND REPAIR TECHNICIAN/PA Physician Supervision For this patient encounter, I reviewed the INSTALL AND REPAIR TECHNICIAN or PA documentation, treatment plan, and medical decision making; and I had dudk-go-avax time with this patient. <Aleks Castillo MD - Last Filed: 04/10/25 20:12> Vital Signs Vital signs: Vital Signs Temperature 97.8 F 04/10/25 09:39 Pulse Rate 90 04/10/25 09:39 Respiratory Rate 14 04/10/25 09:39 Blood Pressure 130/76 04/10/25 09:39 Pulse Oximetry 100 04/10/25 09:39 Temperature 98.3 F 04/10/25 15:39 Pulse Rate 77 04/10/25 18:00 Respiratory Rate 18 04/10/25 15:39 Blood Pressure 109/69 04/10/25 15:39 Pulse Oximetry 95 04/10/25 15:39 Oxygen Delivery Room Air 04/10/25 09:42 <Prema Guadarrama PA-C - Last Filed: 04/10/25 13:13> Vital Signs Temperature 97.8 F 04/10/25 09:39 Pulse Rate 90 04/10/25 09:39 Respiratory Rate 14 04/10/25 09:39 Blood Pressure 130/76 04/10/25 09:39 Pulse Oximetry 100 04/10/25 09:39 Temperature 98.3 F 04/10/25 15:39 Pulse Rate 77 04/10/25 18:00 Respiratory Rate 18 04/10/25 15:39 Blood Pressure 109/69 04/10/25 15:39 Pulse Oximetry 95 04/10/25 15:39 Oxygen Delivery Room Air 04/10/25 09:42 <Aleks Castillo MD - Last Filed: 04/10/25 20:12> MDM - SOB/Dyspnea MDM Narrative Medical decision making narrative: Patient presented to ED with shortness of breath, dyspnea with exertion over the past weekend, now with left upper chest pain that began today. Vital signs are stable upon arrival. EKG with incomplete right bundle-branch block, no concerning ST changes. Baseline troponin undetectable. BNP within normal range. Basic laboratory studies are otherwise fairly unremarkable. No leukocytosis or anemia. Stable electrolytes. Stable kidney function. Normal range. Viral swabs are negative. Chest x-ray with bibasilar atelectasis versus pneumonia. Patient does have some rhonchi on exam. Given recent travel with new shortness of breath, pleuritic pain, leg pain -venous Doppler ultrasound was obtained and showing L peroneal vein DVT. CTA of chest/abdomen/pelvis was obtained and showing bilateral segmental PE, minimal right ventricular strain. No saddle embolism. Discussed lab and imaging findings with patient. Given presence of DVT/PE with acute symptomatology, right ventricular strain. Will start heparin and admit to hospitalist service. Patient denies previous history of blood clots. Aside from recent travel, no significant risk factors. She is in agreement with plan and need for admission. Discussed case with Reyna Esquivel NP hospitalist, accepted patient for admission. <Prema Guadarrama PA-C - Last Filed: 04/10/25 13:13> Medical Records Attestation: I reviewed the patient's medical records. <Prema Guadarrama PA-C - Last Filed: 04/10/25 13:13> Lab Data Attestation: I reviewed the patient's lab results. <Prema Guadarrama PA-C - Last Filed: 04/10/25 13:13> Result diagrams: 04/10/25 09:52 04/10/25 09:52 <Prema Guadarrama PA-C - Last Filed: 04/10/25 13:13> Labs: Lab Results 04/10/25 04/10/25 04/10/25 Range/Units 09:52 11:23 12:58 WBC 7.4 (4.5-10.0) K/mm3 RBC 4.34 (4.2-5.4) M/mm3 Hgb 12.6 (12.0-15.0) g/dL Hct 39.0 (37.0-47.0) % MCV 89.9 (80-100) fl MCH 29.0 (26-34) pg MCHC 32.3 (32-36) g/dl RDW 14.4 (11.5-14.5) % Plt Count 318 (150-375) k/mm3 MPV 9.9 (7.4-10.4) fl Immature Gran % (Auto) 0.3 (0-0.5) % Neut % (Auto) 71.5 (45.5-73.1) % Lymph % (Auto) 17.5 L (18.3-44.2) % [place] % (Auto) 8.7 H (2.6-8.5) % Eos % (Auto) 1.5 (0-4.4) % Baso % (Auto) 0.5 (0.2-1.2) % Lymph # (Auto) 1.29 (0.9-3.2) K/mm3 [place] # (Auto) 0.6 (0.1-0.6) K/mm3 Eos # (Auto) 0.1 (0-0.3) K/mm3 Baso # (Auto) 0.0 (0.0-0.1) K/mm3 Abs Immat Gran (auto) 0.02 (0.00-0.031) K/mm3 Absolute Neuts (auto) 5.3 (1.3-6.7) K/mm3 Absolute Nucleated RBC 0.000 (0.0-0.012) K/mm3 Nucleated RBC % 0.0 (0.0-0.2) % Sodium 139 (137-145) mmol/L Potassium 4.2 (3.4-5.0) mmol/L Chloride 107 (98-107) mmol/L Carbon Dioxide 25 (22-30) mmol/L Anion Gap 7 (4-12) mmol/L BUN 12 (7-17) mg/dL Creatinine 0.62 L (0.7-1.0) mg/dL Estim Creat Clear Calc 71 ml/min Estimated GFR > 60 (59 - ) Glucose 99 (65-110) mg/dL Calcium 8.7 (8.4-10.2) mg/dL Magnesium 1.9 (1.6-2.3) mg/dL Total Bilirubin 0.6 (0.2-1.3) mg/dL AST 32 (14-36) U/L ALT 21 (6-35) U/L Alkaline Phosphatase 55 (38-126) U/L Troponin I < 0.012 < 0.012 (0.000-0.034) ng/mL NT-Pro-B Natriuret Pep 101 H (19.9-100) pg/mL Total Protein 8.0 (6.3-8.2) g/dL Albumin 4.1 (3.5-5.1) g/dL Influenza A (RT-PCR) Negative (Negative) Influenza B (RT-PCR) Negative (Negative) RSV (RT-PCR) Negative (Negative) SARS-CoV-2 RNA (RT-PCR) Negative (Negative) <Prema Guadarrama PA-C - Last Filed: 04/10/25 13:13> Lab Results 04/10/25 04/10/25 04/10/25 Range/Units 09:52 11:23 12:58 WBC 7.4 (4.5-10.0) K/mm3 RBC 4.34 (4.2-5.4) M/mm3 Hgb 12.6 (12.0-15.0) g/dL Hct 39.0 (37.0-47.0) % MCV 89.9 (80-100) fl MCH 29.0 (26-34) pg MCHC 32.3 (32-36) g/dl RDW 14.4 (11.5-14.5) % Plt Count 318 (150-375) k/mm3 MPV 9.9 (7.4-10.4) fl Immature Gran % (Auto) 0.3 (0-0.5) % Neut % (Auto) 71.5 (45.5-73.1) % Lymph % (Auto) 17.5 L (18.3-44.2) % [place] % (Auto) 8.7 H (2.6-8.5) % Eos % (Auto) 1.5 (0-4.4) % Baso % (Auto) 0.5 (0.2-1.2) % Lymph # (Auto) 1.29 (0.9-3.2) K/mm3 [place] # (Auto) 0.6 (0.1-0.6) K/mm3 Eos # (Auto) 0.1 (0-0.3) K/mm3 Baso # (Auto) 0.0 (0.0-0.1) K/mm3 Abs Immat Gran (auto) 0.02 (0.00-0.031) K/mm3 Absolute Neuts (auto) 5.3 (1.3-6.7) K/mm3 Absolute Nucleated RBC 0.000 (0.0-0.012) K/mm3 Nucleated RBC % 0.0 (0.0-0.2) % Sodium 139 (137-145) mmol/L Potassium 4.2 (3.4-5.0) mmol/L Chloride 107 (98-107) mmol/L Carbon Dioxide 25 (22-30) mmol/L Anion Gap 7 (4-12) mmol/L BUN 12 (7-17) mg/dL Creatinine 0.62 L (0.7-1.0) mg/dL Estim Creat Clear Calc 71 ml/min Estimated GFR > 60 (59 - ) Glucose 99 (65-110) mg/dL Calcium 8.7 (8.4-10.2) mg/dL Magnesium 1.9 (1.6-2.3) mg/dL Total Bilirubin 0.6 (0.2-1.3) mg/dL AST 32 (14-36) U/L ALT 21 (6-35) U/L Alkaline Phosphatase 55 (38-126) U/L Troponin I < 0.012 < 0.012 (0.000-0.034) ng/mL NT-Pro-B Natriuret Pep 101 H (19.9-100) pg/mL Total Protein 8.0 (6.3-8.2) g/dL Albumin 4.1 (3.5-5.1) g/dL Influenza A (RT-PCR) Negative (Negative) Influenza B (RT-PCR) Negative (Negative) RSV (RT-PCR) Negative (Negative) SARS-CoV-2 RNA (RT-PCR) Negative (Negative) <Aleks Castillo MD - Last Filed: 04/10/25 20:12> Imaging Data Attestation: I personally reviewed and interpreted this imaging study as follows: < Prema Guadarrama PA-C - Last Filed: 04/10/25 13:13> Radiologist's impression: ITS Impressions Chest X-Ray 04/10/25 10:41 IMPRESSION: Bibasilar atelectasis versus pneumonia. Follow-up advised. Chest/Abdomen/Pelvis CTA 04/10/25 11:45 IMPRESSION: CHEST: 1. Pulmonary embolism with thrombi in the segmental branches. Minimal right ventricular strain. ABDOMEN/PELVIS: 1. No evidence of appendicitis, diverticulitis or intestinal obstruction. 2. Sliding hiatus hernia. 3. Hepatomegaly. 4. Prominent vessels in the pelvis which may indicate pelvic congestion syndrome. 5. Atrophic pancreas. Physician: Prema Guadarrama PA-C Was notified with the result of the patient at 12:12 PM on April 10, 2025. Venous Doppler Study 04/10/25 12:12 IMPRESSION: Acute DVT within the left peroneal vein, as detailed above <Prema Guadarrama PA-C - Last Filed: 04/10/25 13:13> ECG Data EKG #1: Attestation: I personally reviewed and interpreted this ECG as follows: <Prema Guadarrama PA-C - Last Filed: 04/10/25 13:13> ECG completion date: 04/10/25 <RAJENDRA Penny Last Filed: 04/10/25 13:13> ECG completion time: 09:41 <RAJENDRA Penny Last Filed: 04/10/25 13:13> EKG Interpretation: normal rate (87), sinus rhythm, non-specific ST changes and RBBB (incomplete) <Prema Guadarrama PA-C - Last Filed: 04/10/25 13:13> Discharge Plan Discharge Clinical Impression: Pulmonary embolism, bilateral, Acute deep vein thrombosis of left peroneal vein <Prema Guadarrama PA-C - Last Filed: 04/10/25 13:13> Patient Disposition: Still a Patient <RAJENDRA Penny Last Filed: 04/10/25 13:13> Condition: Stable <Prema Guadarrama PA-C - Last Filed: 04/10/25 13:13>
[2025-04-10 12:02] LABS: Magnesium 1.9 mg/dL (1.6-2.3)
[2025-04-10 12:13] LABS: NT Pro B Type Natriuretic Pept 101 pg/mL (19.9-100)
[2025-04-10 12:13] LABS: Influenza A QL RT-PCR Negative (Negative); Influenza B QL RT-PCR Negative (Negative); RSV RNA, RT-PCR Negative (Negative); SARS-CoV-2 RNA PCR Negative (Negative)
[2025-04-10] MEDS: CYCLOBENZAPRINE HCL 5 MG TABLET PO (12:22)
[2025-04-10] MEDS: ACETAMINOPHEN 500 MG TABLET 1000 MG PO (12:23)
[2025-04-10] MEDS: HEPARIN SODIUM 5,000 UNITS/ML VIAL 5500 UNITS IV PUSH (12:44)
[2025-04-10] MEDS: HEPARIN SOD/D5W 100 UNITS/ML 25,000 UNITS/250 ML BAG 12 UNITS IV CONT (12:45)
--- NOTE | 2025-04-10 12:48 | ECG_ITS ---
Test Date: 2025-04-10 12:53:08 Measurements Intervals [place] Rate: 83 P: 27 PA: 176 QRS: 38 QRSD: 130 T: 17 QT: 391 QTc: 461 Interpretive Statements SINUS RHYTHM RIGHT BUNDLE BRANCH BLOCK [120+ ms QRS DURATION, UPRIGHT V1, 40+ ms S IN I/aVL/V4/V5/V6] Compared to ECG 04/10/2025 09:41:53 NO SIGNIFICANT CHANGES Electronically Signed On 04-10-2025 13:45:17 CDT by Danial Gan M.D.
--- NOTE | 2025-04-10 12:49 | PM.IMHP ---
H&P: HPI History of Present Illness Date/Time: 04/10/25 12:49 Chief Complaint: Exertional Shortness of Breath Narrative: 75 y/o F with PMH of HLD, HTN, and anxiety presents here with exertional shortness of breath. The patient presents here from plan for further evaluation of exertional shortness of breath. She reports onset approximately 4 days ago while she was on vacation in [place]. She reports travel to and from [place] via car. She describes the shortness of breath as exertional and noted while walking. It is accompanied by left upper abdominal pain that has since resolved, left anterior chest pain, and intermittent cramping in her bilateral lower extremities. She has taken ibuprofen for the symptoms with some improvement in her symptoms. She denies accompanying chest pain, hemoptysis, no recent surgeries, and no current use of hormones. Reports a previous history of smoking, cessation 11 years ago. Initial VS at presentation: 97.8? F, HR 90, R 14, 130/76, and 100% on RA. ED workup showed: No leukocytosis, no anemia, no significant electrolyte derangements, creatinine 0.62 and GFR >60, BNP 101, and initial troponin negative. CXR showed bibasilar atelectasis versus pneumonia. Chest/abdomen/pelvis CTA showed a pulmonary embolism with thrombi in the segmental branches and minimal right ventricular strain, sliding hiatus hernia, hepatomegaly, prominent vessels in pelvic which may indicate pelvic congestion syndrome, atrophic pancreas. US BLE showed an acute DVT within the left peroneal vein. Review of Systems Review of Systems: All systems reviewed & are unremarkable except as noted in HPI and below PMFSH Past Medical History Medical History Pulmonary embolism 04/10/2025, post-travel DVT (deep venous thrombosis) 04/10/2025, post-travel GERD (gastroesophageal reflux disease) Age related osteoporosis Mixed hyperlipidemia Essential (primary) hypertension Shingles Anxiety History of vaginal delivery x 3 Surgical History Surgical History Hx of tubal ligation Family History Family History Father Family history of coronary artery disease Family history of hypercholesterolemia Hypertension Grandparent Family history of coronary artery disease Mother Family history of lung cancer Social History Social History Smoking packs per day: 1 Smoking cigarettes per day: 20.0 Years smoked: 11 Smoking pack-years: 11.00 Smoking status: Former smoker Tobacco type: cigarettes Second hand tobacco smoke exposure: No Smoking end date: 04/10/25 Alcohol intake: never Substance use: never Substance use type: does not use Do You Feel Safe in your Home?: Yes Lack of Transportation: No Lack of Food: Never True Current Housing: I Do Not Have Housing Concerned About Future Housing: No Difficulty Paying Gas/Electric Bills: No Difficulty Paying for Meds: No Currently Unemployed: No Education: Bachelor's Degree Difficulty w/ Childcare or Family Care: No Living arrangements: with family Spiritual care concerns: No Meds Home Medications and Allergies Home Medications ?Medication ?Instructions ?Recorded ?Confirmed ?Type cholecalciferol (vitamin D3) 125 5,000 unit PO DAILY 11/03/19 04/10/25 History mcg (5,000 unit) disintegrating tablet omega-3 250 [id number]-lutein 2.5 250 cap PO DAILY 11/03/19 04/10/25 History mg-zeaxanthin 0.5 mg capsule ([facility]) omega-3 fatty acids 1,000 mg 2,000 mg PO DAILY 01/07/23 04/10/25 History capsule (Fish Oil Concentrate) peg 400-propylene glycol 0.4 %-0.3 1 drp EACH EYE DAILY PRN Dry Eyes 05/02/24 04/10/25 History % eye drops (Systane Ultra) esomeprazole magnesium 20 mg 20 mg PO DAILY 07/27/24 04/10/25 History capsule,delayed release olmesartan 20 mg tablet 20 mg PO DAILY #90 tabs 12/29/24 04/10/25 Rx denosumab 60 mg/mL subcutaneous 60 mg subcut [id number] 01/30/25 04/10/25 History syringe (Prolia) acetaminophen 500 mg capsule 1,000 mg (2 x 500 mg) PO Q6H PRN 02/04/25 04/10/25 Rx pain #30 caps amlodipine 5 mg tablet See Rx Instructions .Route 02/12/25 04/10/25 Rx .COMPLEX #90 tabs pravastatin 80 mg tablet See Rx Instructions .Route 02/12/25 04/10/25 Rx .COMPLEX #90 tabs Allergies Allergy/AdvReac Type Severity Reaction Status Date / Time No Known Allergies Allergy Verified 04/10/25 09:41 Vital Signs Vital Signs - 24 hr 04/10/25 09:39 04/10/25 09:42 04/10/25 09:42 Temperature 97.8 F Pulse Rate 90 85 Respiratory Rate 14 Blood Pressure 130/76 Pulse Oximetry 100 Oxygen Delivery Room Air Exam Const: General: comfortable and no acute distress Other: , female, nontoxic appearance HENMT: Face/Nose/Sinus: Normal nares present Mouth: Yes moist mucous membranes Eyes: General: appearance normal, both eyes and all related structures Sclera: sclerae normal Pupils: Equal, round and reactive pupils present EOM: EOMs intact bilaterally Resp: Effort & Inspection: normal respiratory effort Auscultation: clear to auscultation bilaterally Cardio: Rate: regular rate Rhythm: regular rhythm Other: S1-S2 present without murmur, rub, ectopy GI: Other: Abdomen soft, nondistended, nontender. Normoactive bowel sounds in all quadrants. Skin: General skin exam: normal color and no rashes or lesions noted Wounds: no wounds Neuro: Speech: normal speech Motor exam (neuro): 5/5 motor strength present throughout Sensory Exam: normal sensation Other: A&O x4 Extrem: Other: Mild tenderness to the left calf to. Trace edema to bilateral ankles, symmetric. No other abnormalities. Psych: Mental Status: mental status grossly normal Affect: normal affect Other: Good insight and judgment, very pleasant H&P: Results Labs Labs: Short CBC 04/10/25 Range/Units 09:52 WBC 7.4 (4.5-10.0) K/mm3 Hgb 12.6 (12.0-15.0) g/dL Hct 39.0 (37.0-47.0) % Plt Count 318 (150-375) k/mm3 BMP 04/10/25 09:52 Sodium 139 Potassium 4.2 Chloride 107 Carbon Dioxide 25 BUN 12 Creatinine 0.62 L Glucose 99 Calcium 8.7 Cardiac Enzymes 04/10/25 Range/Units 09:52 Troponin I < 0.012 (0.000-0.034) ng/mL Liver Function 04/10/25 Range/Units 09:52 Total Bilirubin 0.6 (0.2-1.3) mg/dL AST 32 (14-36) U/L ALT 21 (6-35) U/L Alkaline Phosphatase 55 (38-126) U/L Albumin 4.1 (3.5-5.1) g/dL Assessment and Plan Assessment and plan (1) Pulmonary embolism: Qualifiers: Pulmonary embolism type: multiple subsegmental (without acute cor pulmonale) Qualified Code(s): I26.94 - Multiple subsegmental thrombotic pulmonary emboli without acute cor pulmonale Code(s): I26.99 - Other pulmonary embolism without acute cor pulmonale Status: Acute Assessment and Plan: - CXR: Bibasilar atelectasis versus pneumonia. Follow-up advised. - CTA chest/abdomen/pelvis: CHEST: 1. Pulmonary embolism with thrombi in the segmental branches. Minimal right ventricular strain. ABDOMEN/PELVIS: 1. No evidence of appendicitis, diverticulitis or intestinal obstruction. 2. Sliding hiatus hernia. 3. Hepatomegaly. 4. Prominent vessels in the pelvis which may indicate pelvic congestion syndrome. 5. Atrophic pancreas. - +for DVT, see below - started on heparin gtt on 04/10. Will hold off on transitioning patient to p.o. anticoagulation until echo results. - check echo, minimal right ventricular strain seen on CT - monitor CBC - troponin negative x1, check 3 hr - no current supplemental O2 requirement, monitor (2) DVT (deep venous thrombosis): Qualifiers: Affected thrombotic vein of extremity: peroneal Chronicity: acute DVT location: lower extremity Laterality: left Qualified Code(s): I82.452 - Acute embolism and thrombosis of left peroneal vein Code(s): I82.409 - Acute embolism and thrombosis of unspecified deep veins of unspecified lower extremity Status: Acute Assessment and Plan: - US LE BLE: Acute DVT within the left peroneal vein - started on heparin on 04/10 (3) Pneumonia: Qualifiers: Laterality: right Lung location: unspecified part of lung Pneumonia type: due to unspecified organism Qualified Code(s): J18.9 - Pneumonia, unspecified organism Code(s): J18.9 - Pneumonia, unspecified organism Status: Acute Assessment and Plan: - CTA chest abdomen pelvis showed a ground-glass opacity in the right lung - started on ceftriaxone IV and azithromycin p.o. on 04/10 - supportive care - monitor WBC - no current supplemental O2 requirement, monitor (4) Essential (primary) hypertension: Code(s): I10 - Essential (primary) hypertension Status: Chronic Assessment and Plan: - chronic, currently 111/75 - continue home medications: Amlodipine, olmesartan - monitor Plan Diet: Heart healthy GI Prophylaxis: Not currently indicated DVT Prophylaxis: Heparin gtt IV fluids: None Lines/Tubes: Peripheral IV Code Status: Full code Quality VTE Prophylaxis VTE prophylaxis: pharmacologic ordered Hospitalist [facility] Advance Care Plan I have confirmed that the patient's Advanced Care Plan is present, code status is documented, or surrogate decision maker is listed in patient medical record.: Yes Medication Reconciliation I have utilized all available resources to obtain, update and review the patients current medications (includes all prescriptions, OTC, herbals, cannabis, and nutritional supplements).: Yes
[2025-04-10] MEDS: AZITHROMYCIN 250 MG TABLET 1000 MG PO (13:42)
[2025-04-10 13:43] LABS: Troponin I < 0.012 ng/mL (0.000-0.034)
--- NOTE | 2025-04-10 14:27 | ADMGEN ---
This patient, Zari Brito, was admitted to IMU Room 200-01. Patient/family oriented to hospital policies and general routines including ID bracelet, bed and alarms, visiting hours, pain management, procedures, bathroom and other care routines, personal items, smoking policy, room service/diet, and visiting hours. Information on how to activate the Rapid Response Team has been discussed. Patient/Family are encouraged to report perceived risks to care and to ask questions if they do not understand what they are told or what they should do.
[2025-04-10 20:10] LABS: Partial Thromboplastin Time 68.4 Seconds (22.3-36.8)
[2025-04-10] MEDS: HEPARIN SODIUM 5,000 UNITS/ML VIAL 2500 UNITS IV PUSH (20:48)
[2025-04-11] VITALS (18 sets, daily range): BP systolic 102–133; BP diastolic 56–80; PULSE 68–82; RESP 14–18; TEMP 36.4–36.8; O2SAT 93–98
[2025-04-11 02:55] LABS: Basophils Percent Auto 0.7 % (0.2-1.2); Eosinophils Absolute Auto 0.2 K/mm3 (0-0.3); Eosinophils Percent Auto 3.3 % (0-4.4); Hemoglobin 11.4 g/dL (12.0-15.0); Immature Granulocyte Absolute 0.01 K/mm3 (0.00-0.031); Immature Granulocyte Percent A 0.2 % (0-0.5); Lymphocytes Absolute Auto 1.81 K/mm3 (0.9-3.2); Lymphocytes Percent Auto 31.4 % (18.3-44.2); Mean Corpuscular HGB Conc 31.7 g/dl (32-36); Mean Corpuscular Hemoglobin 28.9 pg (26-34); Mean Corpuscular Volume 91.1 fl (80-100); Mean Platelet Volume 9.6 fl (7.4-10.4); Monocytes Absolute Auto 0.5 K/mm3 (0.1-0.6); Monocytes Percent Auto 8.5 % (2.6-8.5); Neutrophils Absolute Auto 3.2 K/mm3 (1.3-6.7); Neutrophils Percent Auto 55.9 % (45.5-73.1); Platelet Count Result 294 k/mm3 (150-375); Red Blood Count 3.95 M/mm3 (4.2-5.4); Red Cell Distribution Width 14.4 % (11.5-14.5); White Blood Count 5.8 K/mm3 (4.5-10.0)
[2025-04-11 03:10] LABS: Anion Gap 6 mmol/L (4-12); Blood Urea Nitrogen 11 mg/dL (7-17); Calcium 8.4 mg/dL (8.4-10.2); Carbon Dioxide 27 mmol/L (22-30); Chloride 107 mmol/L (98-107); Estimated CRCL calculation 63 ml/min; Estimated Glomerular Filt Rate > 60; Glucose 98 mg/dL (65-110); Sodium 140 mmol/L (137-145)
[2025-04-11 03:12] LABS: Partial Thromboplastin Time 71.4 Seconds (22.3-36.8)
--- NOTE | 2025-04-11 06:00 | ECHO_ITS ---
Patient Info Name: Zari Brito Age: 75 years : 1950 Gender: Female Ht: 62 in Wt: 185 lbs BSA: 1.95 m2 HR: 85 bpm BP: 117 / 71 mmHg Heart Rhythm: Sinus Rhythm Technical Quality: Fair Exam Date: 04/11/2025 9:51 AM Patient Status: I Admit Date: 04/10/2025 Exam Type: CA echo doppler color flow Complete two-dimensional, color flow and Doppler transthoracic echocardiogram is performed. Staff Referring Physician: Prema Guadarrama Rechecker: Falguni Bell Attending Provider: Christiano Kelley Summary 1. Complete two-dimensional, color flow and Doppler transthoracic echocardiogram is performed. 2. Left ventricular chamber dimension is normal. 3. Left ventricular systolic function is normal, estimated at 65-70. 4. There is mildly increased left ventricular wall thickness. 5. The left ventricular diastolic function is grade I diastolic dysfunction. 6. Left atrial chamber dimension is mildly enlarged. 7. There is mild aortic valve sclerosis. 8. There is mild mitral valve regurgitation. 9. There is mild tricuspid valve regurgitation. 10. Mild pulmonary hypertension, estimated pulmonary arterial systolic pressure is 36 mmHg. 11. There is mild pulmonic regurgitation. Left Ventricle Left ventricular chamber dimension is normal. Left ventricular systolic function is normal, estimated at 65-70. There is mildly increased left ventricular wall thickness. The left ventricular diastolic function is grade I diastolic dysfunction. Right Ventricle Right ventricular chamber dimension is normal. Right ventricular systolic function is normal. Left Atria Left atrial chamber dimension is mildly enlarged. Right Atria Right atrial chamber dimension is normal. Atrial Septum Intact interatrial septum visualized by color flow imaging. Aortic Valve The aortic valve is trileaflet. There is mild aortic valve sclerosis. There is no aortic valve stenosis. There is trace aortic valve regurgitation. Pulmonic Valve The pulmonic valve is normal. There is no pulmonic valve stenosis. There is mild pulmonic regurgitation. Mitral Valve The mitral valve has normal leaflets. There is no mitral valve stenosis. There is mild mitral valve regurgitation. Tricuspid Valve The tricuspid valve leaflets are normal. There is no significant tricuspid valve stenosis. There is mild tricuspid valve regurgitation. Mild pulmonary hypertension, estimated pulmonary arterial systolic pressure is 36 mmHg. Pericardium/Pleural The pericardium appears normal. There is no pericardial effusion. Inferior Vena Cava Normal inferior vena cava with <50% collapse upon inspiration consistent with elevated right atrial pressure, 10 mmHg. Left Ventricular Outflow Tract Name Value Normal LVOT 2D LVOT Diameter 2.0 cm LVOT Doppler LVOT Peak Velocity 118 cm/s LVOT Peak Gradient 6 mmHg LVOT Mean Gradient 3 mmHg LVOT VTI 25 cm LVOT VTI/AV VTI Ratio 0.8 LVOT Stroke Volume 78 ml LVOT CO 5.4 l/min LVOT CI 2.8 l/min/m2 Pulmonic Valve Name Value Normal RVOT Doppler RVOT Peak Velocity 65 cm/s RVOT Peak Gradient 2 mmHg PV Doppler PV Peak Velocity 85 cm/s PV Peak Gradient 3 mmHg Mitral Valve Name Value Normal MV Diastolic Function MV E Peak Velocity 73 cm/s MV A Peak Velocity 89 cm/s MV E/A 0.8 MV Decel Time (PW) 272 ms MV Annular TDI MV E/e' (Septal) 11.0 MV E/e' (Lateral) 12.5 MV E/e' (Average) 11.7 Tricuspid Valve Name Value Normal TV Regurgitation Doppler TR Peak Velocity 255 cm/s TR Peak Gradient 26 mmHg Estimated PAP/RSVP RA Pressure 10 mmHg <=5 PA Systolic Pressure 36 mmHg <36 RV Systolic Pressure 36 mmHg <36 TV Annular TDI TV Lateral Damari s' Velocity 10.8 cm/s >=9.5 Aortic Valve Name Value Normal AV Doppler AV Peak Velocity 149 cm/s AV Peak Gradient 9 mmHg AV Mean Gradient 5 mmHg AV VTI 32 cm AV Area (Cont Eq VTI) 2.4 cm2 >=3.0 AV Area (Cont Eq John) 2.5 cm2 AV DI (John) 0.80 AV Regurgitation 2D LVOT Area 3.1 cm2 Ventricles Name Value Normal LV Dimensions 2D/MM IVS Diastolic Thickness (2D) 1.1 cm 0.6-1.0 LVID Diastole (2D) 4.8 cm 3.8-5.2 LVIW Diastolic Thickness (2D) 1.0 cm 0.6-0.9 LVID Systole (2D) 3.3 cm 2.2-3.5 LVOT Diameter 2.0 cm LV Mass (2D Cubed) 173.12 g 67.00-162.00 LV Mass Index (2D Cubed) 89 g/m2 43-95 Relative Wall Thickness (2D) 0.40 <=0.42 LV Fractional Shortening/Ejection Fraction 2D/MM LV Fractional Shortening (2D) 30 % 27-45 LV EF (2D Teichholz) 58 % LV Diastolic Volume (4C MOD) 113 ml LV EF (4C MOD) 72 % LV Diastolic Volume (2C MOD) 109 ml LV EF (2C MOD) 80 % LV Diastolic Volume (BP MOD) 112 ml 46-106 LV Diastolic Volume Index (BP MOD) 57 ml/m2 29-61 LV Systolic Volume (BP MOD) 27 ml 14-42 LV Systolic Volume Index (BP MOD) 14 ml/m2 8-24 LV EF (BP MOD) 76 % 54-74 LV Diastolic Length (4C) 8.0 cm LV Systolic Length (4C) 6.9 cm LV Stroke Volume (4C MOD) 81 ml Atria Name Value Normal LA Dimensions LA Volume (4C A-L) 51 ml LA Volume (BP A-L) 45 ml RA Dimensions RA Systolic Major [place] Length (4C) 4.4 cm 2.2-2.8 RA Area (4C) 14.8 cm2 <=18.0 Report Signatures
[2025-04-11] MEDS: HEPARIN SOD/D5W 100 UNITS/ML 25,000 UNITS/250 ML BAG 13 UNITS IV CONT (08:01)
[2025-04-11] MEDS: OPTI-GEN TAB 1 TABLET PO (08:03)
[2025-04-11] MEDS: OMEGA 3 POLYUNSAT FATTY ACIDS 1 GM CAP 2 GM PO (08:03)
[2025-04-11] MEDS: OLMESARTAN MEDOXOMIL 20 MG TABLET PO (08:04)
[2025-04-11] MEDS: PRAVASTATIN SODIUM 20 MG TABLET 80 MG PO (08:04)
[2025-04-11] MEDS: PANTOPRAZOLE 40 MG TABLET PO (08:04)
[2025-04-11] MEDS: amLODIPine BESYLATE 5 MG TABLET PO (08:05)
[2025-04-11] MEDS: CHOLECALCIFEROL 5,000 UNITS TABLET 5000 UNITS PO (08:05)
--- NOTE | 2025-04-11 09:20 | PM.IMPN ---
Progress Note: A&P Assessment and Plan (1) Pulmonary embolism: Qualifiers: Pulmonary embolism type: multiple subsegmental (without acute cor pulmonale) Qualified Code(s): I26.94 - Multiple subsegmental thrombotic pulmonary emboli without acute cor pulmonale Code(s): I26.99 - Other pulmonary embolism without acute cor pulmonale Status: Acute Assessment and Plan: - CXR: Bibasilar atelectasis versus pneumonia. Follow-up advised. - CTA chest/abdomen/pelvis: CHEST: 1. Pulmonary embolism with thrombi in the segmental branches. Minimal right ventricular strain. ABDOMEN/PELVIS: 1. No evidence of appendicitis, diverticulitis or intestinal obstruction. 2. Sliding hiatus hernia. 3. Hepatomegaly. 4. Prominent vessels in the pelvis which may indicate pelvic congestion syndrome. 5. Atrophic pancreas. - +for DVT, see below - started on heparin gtt on 04/10. Will hold off on transitioning patient to p.o. anticoagulation until echo results. - check echo, minimal right ventricular strain seen on CT - monitor CBC - troponin negative x1, check 3 hr - no current supplemental O2 requirement, monitor (2) DVT (deep venous thrombosis): Qualifiers: Affected thrombotic vein of extremity: peroneal Chronicity: acute DVT location: lower extremity Laterality: left Qualified Code(s): I82.452 - Acute embolism and thrombosis of left peroneal vein Code(s): I82.409 - Acute embolism and thrombosis of unspecified deep veins of unspecified lower extremity Status: Acute Assessment and Plan: - US LE BLE: Acute DVT within the left peroneal vein - started on heparin on 04/10 (3) Pneumonia: Qualifiers: Laterality: right Lung location: unspecified part of lung Pneumonia type: due to unspecified organism Qualified Code(s): J18.9 - Pneumonia, unspecified organism Code(s): J18.9 - Pneumonia, unspecified organism Status: Acute Assessment and Plan: - CTA chest abdomen pelvis showed a ground-glass opacity in the right lung - started on ceftriaxone IV and azithromycin p.o. on 04/10 - supportive care - monitor WBC - no current supplemental O2 requirement, monitor (4) Essential (primary) hypertension: Code(s): I10 - Essential (primary) hypertension Status: Chronic Assessment and Plan: - chronic, currently 111/75 - continue home medications: Amlodipine, olmesartan - monitor Plan Diet: Heart healthy GI Prophylaxis: Not currently indicated DVT Prophylaxis: Heparin gtt IV fluids: None Lines/Tubes: Peripheral IV Code Status: Full code Subjective Date/time seen: 04/11/25 09:20 Interval history: Patient had a vacation in [place] and was returning back by driving. Started with the chest pain and shortness of breath. Patient is currently admitted due to pulmonary embolism and left leg DVT. Currently on heparin drip. Possibly will switch to oral anticoagulant tomorrow. Echocardiogram reviewed no evidence of right heart strain Review of Systems Review of Systems: All systems reviewed & are unremarkable except as noted in HPI and below Exam Narrative: ok Const: General: comfortable and no acute distress Other: , female, nontoxic appearance HENMT: Face/Nose/Sinus: Normal nares present Mouth: Yes moist mucous membranes Eyes: General: appearance normal, both eyes and all related structures Sclera: sclerae normal Pupils: Equal, round and reactive pupils present EOM: EOMs intact bilaterally Resp: Effort & Inspection: normal respiratory effort Auscultation: clear to auscultation bilaterally Cardio: Rate: regular rate Rhythm: regular rhythm Other: S1-S2 present without murmur, rub, ectopy GI: Other: Abdomen soft, nondistended, nontender. Normoactive bowel sounds in all quadrants. Skin: General skin exam: normal color and no rashes or lesions noted Wounds: no wounds Neuro: Cranial nerves: Yes Equal, round and reactive pupils present Speech: normal speech Motor exam (neuro): 5/5 motor strength present throughout Sensory Exam: normal sensation Other: A&O x4 Extrem: Other: Mild tenderness to the left calf to. Trace edema to bilateral ankles, symmetric. No other abnormalities. Psych: Mental Status: mental status grossly normal Affect: normal affect Other: Good insight and judgment, very pleasant Objective Data Vital Signs Vital Signs: Vital Signs - 24 hr 04/10/25 09:39 04/10/25 09:42 04/10/25 09:42 Temperature 97.8 F Pulse Rate 90 85 Respiratory Rate 14 Blood Pressure 130/76 Pulse Oximetry 100 Oxygen Delivery Room Air 04/10/25 12:56 04/10/25 13:38 04/10/25 14:25 Temperature 97.9 F Pulse Rate 89 81 75 Respiratory Rate 20 20 18 Blood Pressure 111/75 123/80 125/65 Pulse Oximetry 100 98 95 Oxygen Delivery 04/10/25 15:39 04/10/25 16:00 04/10/25 18:00 Temperature 98.3 F Pulse Rate 74 77 77 Respiratory Rate 18 Blood Pressure 109/69 Pulse Oximetry 95 Oxygen Delivery 04/10/25 20:00 04/10/25 20:00 04/10/25 20:00 Temperature 97.6 F Pulse Rate 73 77 77 Respiratory Rate 17 17 Blood Pressure 109/63 Pulse Oximetry 94 94 Oxygen Delivery Room Air 04/10/25 22:00 04/10/25 23:50 04/10/25 23:50 Temperature Pulse Rate 72 74 74 Respiratory Rate 17 Blood Pressure Pulse Oximetry 94 Oxygen Delivery Room Air 04/11/25 00:00 04/11/25 02:00 04/11/25 03:53 Temperature 97.6 F 97.6 F Pulse Rate 82 74 70 Respiratory Rate 18 17 Blood Pressure 102/56 L 117/71 Pulse Oximetry 94 93 Oxygen Delivery 04/11/25 04:00 04/11/25 04:00 04/11/25 05:38 Temperature Pulse Rate 71 71 78 Respiratory Rate 17 Blood Pressure Pulse Oximetry 93 Oxygen Delivery Room Air 04/11/25 07:31 04/11/25 08:00 Temperature 98.1 F Pulse Rate 73 Respiratory Rate 14 Blood Pressure 103/80 Pulse Oximetry 95 95 Oxygen Delivery Room Air Intake/Output Intake/Output: Intake & Output 04/08/25 04/09/25 04/10/25 04/11/25 23:59 23:59 23:59 23:59 Intake Total 576.8 1091.6 Output Total 550 Balance 26.8 1091.6 Meds/Results Medications: Active Medications Generic Name Dose Route Start Last Admin Trade Name Freq PRN Reason Stop Dose Admin Acetaminophen 650 mg 04/10/25 12:28 Acetaminophen 325 Mg Tablet PO Q4H PRN Mild Pain (1-3) or Fever Amlodipine Besylate 5 mg 04/11/25 09:00 04/11/25 08:05 Amlodipine Besylate 5 Mg Tablet PO 5 mg DAILY MURIEL Administration Artificial Tears 1 drop 04/10/25 21:21 Artificial Tears Ophth Soln 15 Ml Bottle EACH EYE DAILY PRN Dry Eye(s) Azithromycin 500 mg 04/11/25 13:00 Azithromycin 250 Mg Tablet PO Q24H MURIEL Benzonatate 100 mg 04/10/25 12:58 Benzonatate 100 Mg Capsule PO TID PRN Cough Fish Oil 2 gm 04/11/25 09:00 04/11/25 08:03 [place] 3 Polyunsat Fatty Acids 1 Gm Cap PO 2 gm DAILY MURIEL Administration Guaifenesin 600 mg 04/10/25 12:58 Guaifenesin 12 Hr 600 Mg Tabcr PO Q12HR PRN Congestion Heparin Sodium (Porcine) 5,500 units 04/10/25 12:17 Heparin Sodium 5,000 Units/Ml Vial IV PUSH PRN PRN aPTT less than 55 seconds Heparin Sodium (Porcine) 2,500 units 04/10/25 12:17 04/10/25 20:48 Heparin Sodium 5,000 Units/Ml Vial IV PUSH 2,500 units PRN PRN Administration aPTT 55 - 70 seconds Heparin Sodium/Dextrose 25,000 units in 250 mls @ 13 mls/hr 04/10/25 12:20 04/11/25 08:01 Heparin Sodium/D5w 100 Units/Ml IV CONT 1,300 units/hr .[id number] MURIEL 13 mls/hr Administration Protocol 1,300 UNITS/HR Ceftriaxone Sodium 1 gm in 50 mls @ 100 mls/hr 04/10/25 12:00 04/10/25 13:43 Rocephin 1 Gm/Ns 50 Ml IVPB 100 mls/hr Q24H MURIEL Administration Multivitamins/Minerals 1 tablet 04/11/25 09:00 04/11/25 08:03 Opti-Gen Tab PO 1 tablet QAM MURIEL Administration Olmesartan 20 mg 04/11/25 09:00 04/11/25 08:04 Olmesartan Medoxomil 20 Mg Tablet PO 20 mg DAILY MURIEL Administration Ondansetron HCl 4 mg 04/10/25 12:28 Ondansetron Inj 4 Mg/2 Ml Vial IV PUSH Q4H PRN Nausea Pantoprazole Sodium 40 mg 04/11/25 09:00 04/11/25 08:04 Pantoprazole 40 Mg Tablet PO 40 mg QAM MURIEL Administration Perflutren Lipid Microsphere 0 ml 04/10/25 12:28 Perflutren Lipid Microspheres 1.5 Ml Vial Diluted To 10 Ml Total Volume IV PUSH 04/13/25 12:29 ONCE PRN adequate visualization Protocol Pravastatin Sodium 80 mg 04/11/25 09:00 04/11/25 08:04 Pravastatin Sodium 20 Mg Tablet PO 80 mg DAILY MURIEL Administration Vitamin D 5,000 units 04/11/25 09:00 04/11/25 08:05 Cholecalciferol 5,000 Units Tablet PO 5,000 units DAILY MURIEL Administration Radiology Results: ITS Impressions Chest X-Ray 04/10/25 10:41 IMPRESSION: Bibasilar atelectasis versus pneumonia. Follow-up advised. Chest/Abdomen/Pelvis CTA 04/10/25 11:45 IMPRESSION: CHEST: 1. Pulmonary embolism with thrombi in the segmental branches. Minimal right ventricular strain. ABDOMEN/PELVIS: 1. No evidence of appendicitis, diverticulitis or intestinal obstruction. 2. Sliding hiatus hernia. 3. Hepatomegaly. 4. Prominent vessels in the pelvis which may indicate pelvic congestion syndrome. 5. Atrophic pancreas. Physician: Prema Guadarrama PA-C Was notified with the result of the patient at 12:12 PM on April 10, 2025. Venous Doppler Study 04/10/25 12:12 IMPRESSION: Acute DVT within the left peroneal vein, as detailed above Labs Labs: Laboratory Results - last 24 hr 04/10/25 04/10/25 04/10/25 09:52 11:23 12:58 WBC 7.4 RBC 4.34 Hgb 12.6 Hct 39.0 MCV 89.9 MCH 29.0 MCHC 32.3 RDW 14.4 Plt Count 318 MPV 9.9 Immature Gran % (Auto) 0.3 Neut % (Auto) 71.5 Lymph % (Auto) 17.5 L [place] % (Auto) 8.7 H Eos % (Auto) 1.5 Baso % (Auto) 0.5 Lymph # (Auto) 1.29 [place] # (Auto) 0.6 Eos # (Auto) 0.1 Baso # (Auto) 0.0 Abs Immat Gran (auto) 0.02 Absolute Neuts (auto) 5.3 Absolute Nucleated RBC 0.000 Nucleated RBC % 0.0 APTT Sodium 139 Potassium 4.2 Chloride 107 Carbon Dioxide 25 Anion Gap 7 BUN 12 Creatinine 0.62 L Estim Creat Clear Calc 71 Estimated GFR > 60 Glucose 99 Calcium 8.7 Magnesium 1.9 Total Bilirubin 0.6 AST 32 ALT 21 Alkaline Phosphatase 55 Troponin I < 0.012 < 0.012 NT-Pro-B Natriuret Pep 101 H Total Protein 8.0 Albumin 4.1 Influenza A (RT-PCR) Negative Influenza B (RT-PCR) Negative RSV (RT-PCR) Negative SARS-CoV-2 RNA (RT-PCR) Negative 04/10/25 04/11/25 18:54 02:45 WBC 5.8 RBC 3.95 L Hgb 11.4 L Hct 36.0 L MCV 91.1 MCH 28.9 MCHC 31.7 L RDW 14.4 Plt Count 294 MPV 9.6 Immature Gran % (Auto) 0.2 Neut % (Auto) 55.9 Lymph % (Auto) 31.4 [place] % (Auto) 8.5 Eos % (Auto) 3.3 Baso % (Auto) 0.7 Lymph # (Auto) 1.81 [place] # (Auto) 0.5 Eos # (Auto) 0.2 Baso # (Auto) 0.0 Abs Immat Gran (auto) 0.01 Absolute Neuts (auto) 3.2 Absolute Nucleated RBC 0.000 Nucleated RBC % 0.0 APTT 68.4 H 71.4 H Sodium 140 Potassium 4.0 Chloride 107 Carbon Dioxide 27 Anion Gap 6 BUN 11 Creatinine 0.67 L Estim Creat Clear Calc 63 Estimated GFR > 60 Glucose 98 Calcium 8.4 Magnesium Total Bilirubin AST ALT Alkaline Phosphatase Troponin I NT-Pro-B Natriuret Pep Total Protein Albumin Influenza A (RT-PCR) Influenza B (RT-PCR) RSV (RT-PCR) SARS-CoV-2 RNA (RT-PCR) Quality VTE Prophylaxis VTE prophylaxis: pharmacologic ordered Hospitalist MIPS Advance Care Plan I have confirmed that the patient's Advanced Care Plan is present, code status is documented, or surrogate decision maker is listed in patient medical record.: Yes Medication Reconciliation I have utilized all available resources to obtain, update and review the patients current medications (includes all prescriptions, OTC, herbals, cannabis, and nutritional supplements).: Yes
[2025-04-11 10:10] LABS: Partial Thromboplastin Time 68.3 Seconds (22.3-36.8)
[2025-04-11] MEDS: HEPARIN SODIUM 5,000 UNITS/ML VIAL 2500 UNITS IV PUSH (10:51)
[2025-04-11] MEDS: AZITHROMYCIN 250 MG TABLET 500 MG PO (12:46)
[2025-04-11 17:30] LABS: Partial Thromboplastin Time 79.8 Seconds (22.3-36.8)
--- NOTE | 2025-04-11 18:02 | P.CONONC_ITS ---
Assessment and Plan Assessment and plan (1) Pulmonary embolism, bilateral: Code(s): I26.99 - Other pulmonary embolism without acute cor pulmonale Status: Acute Plan This is a pleasant 75-year-old female with history of hypertension and hyperlipidemia without any prior history of thromboembolic events admitted to the hospital with shortness of breath and dyspnea on exertion. She just came back from her vacation from [facility] and drove 12 hours. Patient was having some discomfort in her leg even prior to going on the vacation. Doppler study shows acute DVT within the left peroneal vein and the CTA chest showed pulmonary embolism with thrombi in the segmental branches and minimal right ventricular strain. Her DVT and PE is likely provoked due to the prolonged drive. I would suggest starting Eliquis 10 mg twice a day for 1 week and 5 mg twice a day after discharge. She will follow-up with me in the office and repeat Doppler studies will be done in 3 months. After resolution of DVT will perform hypercoagulable state workup. I have answered all the questions to patient and satisfaction. HPI Data of Consult Date/Time: 04/11/25 18:02 Requesting Physician: Christiano Kelley MD Primary Care Provider: Marcin Arenas MD Consult Narrative Narrative: Zari Brito is a 75 year old female with history of hyperlipidemia and hypertension admitted to the hospital with shortness of breath and dyspnea on exertion. Patient denies any previous history of thromboembolic events. Patient went on vacation to [place] in [place] and drove back 12 hours straight. According the patient she was having some discomfort in the left lower extremity even before she went on her vacation. On the vacation she started feeling short of breath and dyspnea on exertion. CT chest abdomen pelvis was performed showed pulmonary embolism with thrombi in the segmental branches and minimal right ventricular strain. Doppler study showed acute DVT within the left peroneal vein. There is a family history of heart disease in the father. Denies any other new complaint. Review of Systems 2 Review of Systems: Review of system as per HPI otherwise negative [facility] Past Medical History Medical History Pulmonary embolism 04/10/2025, post-travel DVT (deep venous thrombosis) 04/10/2025, post-travel GERD (gastroesophageal reflux disease) Age related osteoporosis Mixed hyperlipidemia Essential (primary) hypertension Shingles Anxiety History of vaginal delivery x 3 Surgical History Surgical History Hx of tubal ligation Family History Family History Father Family history of coronary artery disease Family history of hypercholesterolemia Hypertension Grandparent Family history of coronary artery disease Mother Family history of lung cancer Social History Social History Smoking packs per day: 1 Smoking cigarettes per day: 20.0 Years smoked: 11 Smoking pack-years: 11.00 Smoking status: Former smoker Tobacco type: cigarettes Second hand tobacco smoke exposure: No Smoking end date: 04/10/25 Alcohol intake: never Substance use: never Substance use type: does not use Do You Feel Safe in your Home?: Yes Lack of Transportation: No Lack of Food: Never True Current Housing: I Do Not Have Housing Concerned About Future Housing: No Difficulty Paying Gas/Electric Bills: No Difficulty Paying for Meds: No Currently Unemployed: No Education: Bachelor's Degree Difficulty w/ Childcare or Family Care: No Living arrangements: with family Spiritual care concerns: No Meds Home Medications and Allergies Home Medications ?Medication ?Instructions ?Recorded ?Confirmed ?Type cholecalciferol (vitamin D3) 125 5,000 unit PO DAILY 11/03/19 04/10/25 History mcg (5,000 unit) disintegrating tablet omega-3 250 mp-fxl-opa-lutein 2.5 250 cap PO DAILY 11/03/19 04/10/25 History mg-zeaxanthin 0.5 mg capsule ([facility]) omega-3 fatty acids 1,000 mg 2,000 mg PO DAILY 01/07/23 04/10/25 History capsule (Fish Oil Concentrate) peg 400-propylene glycol 0.4 %-0.3 1 drp EACH EYE DAILY PRN Dry Eyes 05/02/24 04/10/25 History % eye drops (Systane Ultra) esomeprazole magnesium 20 mg 20 mg PO DAILY 07/27/24 04/10/25 History capsule,delayed release olmesartan 20 mg tablet 20 mg PO DAILY #90 tabs 12/29/24 04/10/25 Rx denosumab 60 mg/mL subcutaneous 60 mg subcut [id number] 01/30/25 04/10/25 History syringe (Prolia) acetaminophen 500 mg capsule 1,000 mg (2 x 500 mg) PO Q6H PRN 02/04/25 04/10/25 Rx pain #30 caps amlodipine 5 mg tablet See Rx Instructions .Route 02/12/25 04/10/25 Rx .COMPLEX #90 tabs pravastatin 80 mg tablet See Rx Instructions .Route 02/12/25 04/10/25 Rx .COMPLEX #90 tabs Allergies Allergy/AdvReac Type Severity Reaction Status Date / Time No Known Allergies Allergy Verified 04/10/25 09:41 Vital Signs Vital Signs - 24 hr 04/10/25 20:00 04/10/25 20:00 04/10/25 20:00 Temperature 36.4 C Pulse Rate 73 77 77 Respiratory Rate 17 17 Blood Pressure 109/63 Pulse Oximetry 94 94 Oxygen Delivery Room Air 04/10/25 22:00 04/10/25 23:50 04/10/25 23:50 Temperature Pulse Rate 72 74 74 Respiratory Rate 17 Blood Pressure Pulse Oximetry 94 Oxygen Delivery Room Air 04/11/25 00:00 04/11/25 02:00 04/11/25 03:53 Temperature 36.4 C 36.4 C Pulse Rate 82 74 70 Respiratory Rate 18 17 Blood Pressure 102/56 L 117/71 Pulse Oximetry 94 93 Oxygen Delivery 04/11/25 04:00 04/11/25 04:00 04/11/25 05:38 Temperature Pulse Rate 71 71 78 Respiratory Rate 17 Blood Pressure Pulse Oximetry 93 Oxygen Delivery Room Air 04/11/25 07:31 04/11/25 08:00 04/11/25 08:00 Temperature 36.7 C Pulse Rate 73 78 Respiratory Rate 14 Blood Pressure 103/80 Pulse Oximetry 95 95 Oxygen Delivery Room Air 04/11/25 10:00 04/11/25 11:21 04/11/25 12:00 Temperature 36.4 C Pulse Rate 68 71 78 Respiratory Rate 18 Blood Pressure 118/69 Pulse Oximetry 96 Oxygen Delivery 04/11/25 12:00 04/11/25 14:00 04/11/25 15:22 Temperature 36.8 C Pulse Rate 73 75 Respiratory Rate 16 Blood Pressure 116/70 Pulse Oximetry 96 96 Oxygen Delivery Room Air Exam 2 Narrative: Lungs are clear to auscultation bilaterally Cardiovascular regular rate rhythm no murmurs Abdomen soft nontender nondistended Extremities no edema Results Labs 04/11/25 02:45 04/11/25 02:45 Labs: Short CBC 04/11/25 Range/Units 02:45 WBC 5.8 (4.5-10.0) K/mm3 Hgb 11.4 L (12.0-15.0) g/dL Hct 36.0 L (37.0-47.0) % Plt Count 294 (150-375) k/mm3 [facility] 04/11/25 02:45 Sodium 140 Potassium 4.0 Chloride 107 Carbon Dioxide 27 BUN 11 Creatinine 0.67 L Glucose 98 Calcium 8.4
[2025-04-11 23:38] LABS: Partial Thromboplastin Time 91.6 Seconds (22.3-36.8)
[2025-04-12] VITALS (10 sets, daily range): BP systolic 112–121; BP diastolic 56–67; PULSE 68–78; RESP 16–18; TEMP 36.3–36.8; O2SAT 95–96
[2025-04-12] MEDS: HEPARIN SOD/D5W 100 UNITS/ML 25,000 UNITS/250 ML BAG 14 UNITS IV CONT (01:00)
[2025-04-12 04:54] LABS: Hematocrit 37.7 % (37.0-47.0); Hemoglobin 11.9 g/dL (12.0-15.0); Mean Corpuscular HGB Conc 31.6 g/dl (32-36); Mean Corpuscular Hemoglobin 28.6 pg (26-34); Mean Corpuscular Volume 90.6 fl (80-100); Mean Platelet Volume 9.7 fl (7.4-10.4); Platelet Count Result 331 k/mm3 (150-375); Red Blood Count 4.16 M/mm3 (4.2-5.4); Red Cell Distribution Width 14.2 % (11.5-14.5); White Blood Count 5.8 K/mm3 (4.5-10.0)
[2025-04-12 05:09] LABS: Alanine Aminotransferase 19 U/L (6-35); Albumin Level 3.6 g/dL (3.5-5.1); Alkaline Phosphatase 68 U/L (38-126); Anion Gap 8 mmol/L (4-12); Aspartate Amino Transferase 27 U/L (14-36); Bilirubin,Total 0.3 mg/dL (0.2-1.3); Blood Urea Nitrogen 10 mg/dL (7-17); Calcium 8.7 mg/dL (8.4-10.2); Carbon Dioxide 27 mmol/L (22-30); Chloride 104 mmol/L (98-107); Estimated CRCL calculation 60 ml/min; Estimated Glomerular Filt Rate > 60; Glucose 96 mg/dL (65-110); Sodium 139 mmol/L (137-145)
[2025-04-12 06:02] LABS: Partial Thromboplastin Time 100.6 Seconds (22.3-36.8)
--- NOTE | 2025-04-12 07:53 | PM.DS ---
DS: Admitting Diagnosis Discharge Date 04/12/2025 Admitting Diagnosis Pulmonary embolism and left leg DVT DS: Discharge Diagnosis Discharge Diagnosis (1) Pulmonary embolism: Qualifiers: Pulmonary embolism type: multiple subsegmental (without acute cor pulmonale) Qualified Code(s): I26.94 - Multiple subsegmental thrombotic pulmonary emboli without acute cor pulmonale Code(s): I26.99 - Other pulmonary embolism without acute cor pulmonale Status: Acute Assessment and Plan: Please refer to hospital course for brief summary - CXR: Bibasilar atelectasis versus pneumonia. Follow-up advised. - CTA chest/abdomen/pelvis: CHEST: 1. Pulmonary embolism with thrombi in the segmental branches. Minimal right ventricular strain. ABDOMEN/PELVIS: 1. No evidence of appendicitis, diverticulitis or intestinal obstruction. 2. Sliding hiatus hernia. 3. Hepatomegaly. 4. Prominent vessels in the pelvis which may indicate pelvic congestion syndrome. 5. Atrophic pancreas. - +for DVT, see below - started on heparin gtt on 04/10. Will hold off on transitioning patient to p.o. anticoagulation until echo results. - check echo, minimal right ventricular strain seen on CT - monitor CBC - troponin negative x1, check 3 hr - no current supplemental O2 requirement, monitor (2) DVT (deep venous thrombosis): Qualifiers: Affected thrombotic vein of extremity: peroneal Chronicity: acute DVT location: lower extremity Laterality: left Qualified Code(s): I82.452 - Acute embolism and thrombosis of left peroneal vein Code(s): I82.409 - Acute embolism and thrombosis of unspecified deep veins of unspecified lower extremity Status: Acute Assessment and Plan: - US LE BLE: Acute DVT within the left peroneal vein - started on heparin on 04/10 (3) Pneumonia: Qualifiers: Laterality: right Lung location: unspecified part of lung Pneumonia type: due to unspecified organism Qualified Code(s): J18.9 - Pneumonia, unspecified organism Code(s): J18.9 - Pneumonia, unspecified organism Status: Acute Assessment and Plan: - CTA chest abdomen pelvis showed a ground-glass opacity in the right lung - started on ceftriaxone IV and azithromycin p.o. on 04/10 - supportive care - monitor WBC - no current supplemental O2 requirement, monitor (4) Essential (primary) hypertension: Code(s): I10 - Essential (primary) hypertension Status: Chronic Assessment and Plan: - chronic, currently 111/75 - continue home medications: Amlodipine, olmesartan - monitor DS: Summary Hospital Course Hospital Course: 75 y/o F with PMH of HLD, HTN, and anxiety presents here with exertional shortness of breath. The patient presents here from plan for further evaluation of exertional shortness of breath. She reports onset approximately 4 days ago while she was on vacation in [place]. She reports travel to and from [place] via car. She describes the shortness of breath as exertional and noted while walking. It is accompanied by left upper abdominal pain that has since resolved, left anterior chest pain, and intermittent cramping in her bilateral lower extremities. She has taken ibuprofen for the symptoms with some improvement in her symptoms. She denies accompanying chest pain, hemoptysis, no recent surgeries, and no current use of hormones. Reports a previous history of smoking, cessation 11 years ago. Initial VS at presentation: 97.8? F, HR 90, R 14, 130/76, and 100% on RA. ED workup showed: No leukocytosis, no anemia, no significant electrolyte derangements, creatinine 0.62 and GFR >60, BNP 101, and initial troponin negative. CXR showed bibasilar atelectasis versus pneumonia. Chest/abdomen/pelvis CTA showed a pulmonary embolism with thrombi in the segmental branches and minimal right ventricular strain, sliding hiatus hernia, hepatomegaly, prominent vessels in pelvic which may indicate pelvic congestion syndrome, atrophic pancreas. US BLE showed an acute DVT within the left peroneal vein. Patient initially started on heparin drip. Today stop the heparin drip and started Eliquis 10 mg p.o. b.i.d. for 7 days and Eliquis 5 mg p.o. b.i.d. afterwards. Both her DVT and PE possibly provoked due to prolonged drive to [place] and back forth. CTA showed minimal right ventricular strain but echo shows no right heart strain. Please refer to the full report. Recovery Specialist/oncologist was consulted ,who the patient will follow-up him in the office and repeat Doppler studies in 3 months. After the resolution of DVT patient will undergo hypercoagulable state workup. Advised the patient to monitor for any bleeding signs including shortness of breath, palpitation or chest pain. Patient agrees with the plan. On the day of discharge, the patient was seen and examined. Vital signs were stable. Physical exam were stable and labs were reviewed at length. Discharge instructions, medications, and follow-up appointments were discussed with the patient at length and all day questions were answered. ER warnings were given. Status at Discharge Cognitive/behavioral status at discharge: Stable Time Spent with Patient Time attestation: Total time spent providing and/or coordinating discharge services: 45 minutes Exam Narrative: ok Const: General: comfortable and no acute distress Other: , female, nontoxic appearance HENMT: Face/Nose/Sinus: Normal nares present Mouth: Yes moist mucous membranes Eyes: General: appearance normal, both eyes and all related structures Sclera: sclerae normal Pupils: Equal, round and reactive pupils present EOM: EOMs intact bilaterally Resp: Effort & Inspection: normal respiratory effort Auscultation: clear to auscultation bilaterally Cardio: Rate: regular rate Rhythm: regular rhythm Other: S1-S2 present without murmur, rub, ectopy GI: Other: Abdomen soft, nondistended, nontender. Normoactive bowel sounds in all quadrants. Skin: General skin exam: normal color and no rashes or lesions noted Wounds: no wounds Neuro: Cranial nerves: Yes Equal, round and reactive pupils present Speech: normal speech Motor exam (neuro): 5/5 motor strength present throughout Sensory Exam: normal sensation Other: A&O x4 Extrem: Other: Mild tenderness to the left calf to. Trace edema to bilateral ankles, symmetric. No other abnormalities. Psych: Mental Status: mental status grossly normal Affect: normal affect Other: Good insight and judgment, very pleasant DS: Data Data Completed and Pending Labs on day of discharge: Labs from last 24 hours 04/12/25 04/12/25 04/11/25 05:33 03:59 23:00 WBC 5.8 RBC 4.16 L Hgb 11.9 L Hct 37.7 MCV 90.6 MCH 28.6 MCHC 31.6 L RDW 14.2 Plt Count 331 MPV 9.7 APTT 100.6 H 91.6 H Sodium 139 Potassium 4.0 Chloride 104 Carbon Dioxide 27 Anion Gap 8 BUN 10 Creatinine 0.70 Estim Creat Clear Calc 60 Estimated GFR > 60 Glucose 96 Calcium 8.7 Total Bilirubin 0.3 AST 27 ALT 19 Alkaline Phosphatase 68 Total Protein 7.0 Albumin 3.6 04/11/25 04/11/25 17:05 09:45 WBC RBC Hgb Hct MCV MCH MCHC RDW Plt Count MPV APTT 79.8 H 68.3 H Sodium Potassium Chloride Carbon Dioxide Anion Gap BUN Creatinine Estim Creat Clear Calc Estimated GFR Glucose Calcium Total Bilirubin AST ALT Alkaline Phosphatase Total Protein Albumin Additional Comments Additional comments: ITS Impressions Chest X-Ray 04/10/25 10:41 IMPRESSION: Bibasilar atelectasis versus pneumonia. Follow-up advised. Chest/Abdomen/Pelvis CTA 04/10/25 11:45 IMPRESSION: CHEST: 1. Pulmonary embolism with thrombi in the segmental branches. Minimal right ventricular strain. ABDOMEN/PELVIS: 1. No evidence of appendicitis, diverticulitis or intestinal obstruction. 2. Sliding hiatus hernia. 3. Hepatomegaly. 4. Prominent vessels in the pelvis which may indicate pelvic congestion syndrome. 5. Atrophic pancreas. Physician: Prema Guadarrama PA-C Was notified with the result of the patient at 12:12 PM on April 10, 2025. Venous Doppler Study 04/10/25 12:12 IMPRESSION: Acute DVT within the left peroneal vein, as detailed above Discharge Plan Discharge Attending physician on discharge: Christiano Kelley Consulting providers: Ronal Villanueva Discharging Clinician: Christiano Kelley Patient Disposition: Home Activity: as tolerated Diet: as tolerated Discharge Instructions: Patient need to take apixaban 10 mg p.o. b.i.d. for 7 days(04/12-04/18) then apixaban 5 mg p.o. b.i.d. Please follow-up with Dr. Villanueva and PCP Monitor for any bleeding signs including shortness of breath, chest pain, palpitation Check blood pressure 1 to 2 times a day. Record and bring into your doctor for review. Call your doctor if your blood pressure is greater than 180/110 or less than 90/45. Walk with cane or other assist device. Take precautions to avoid falls. Rise slowly from a lying or sitting position. Pause before standing or walking. Contact your doctor or call 911 and come to the Emergency Room if you have any type of trauma, lightheadedness with standing or other worrisome symptoms. Avoid NSAIDs (ibuprofen, naproxen, Aleve). Tylenol is safe to take. Follow-up with your primary care provider in 1-2 weeks. Please call for appointment. Thank you for using [facility] for your health care needs. Patient Instructions: Antibiotic Form Patient Language: Hungarian Stand Alone Forms: General Discharge Information Follow-up/Referrals: Ronal Villanueva MD [Physician] - Marcin Arenas MD [Primary Care Provider] - Discharge Medications: New guaifenesin [Mucus Relief ER] 600 mg Tablet Extended Release 12hr 600 mg PO Q12HR PRN (Reason: Congestion) Qty: 15 0RF Eliquis 5 mg tablet 10 mg PO BID Qty: 28 0RF Rx Instructions: Please take Eliquis 10mg PO BID for 7 days (04/18) Eliquis 5 mg tablet 5 mg PO BID Qty: 60 0RF Rx Instructions: Please take Eliquis 5 mg PO BID from 04/19 until further instruction from Continued Systane Ultra 0.4-0.3 % drops 1 drp EACH EYE DAILY PRN (Reason: Dry Eyes) esomeprazole magnesium 20 mg capsule,delayed release(DR/EC) 20 mg PO DAILY Prolia 60 mg/mL syringe 60 mg subcut [id number] acetaminophen 500 mg capsule 1,000 mg PO Q6H PRN (Reason: pain) Qty: 30 0RF Patient Comments: . cholecalciferol (vitamin D3) 5,000 unit tablet,disintegrating 5,000 unit PO DAILY [facility] 250-2.5-0.5 mg capsule 250 cap PO DAILY omega-3 fatty acids [Fish Oil Concentrate] 1,000 mg capsule 2,000 mg PO DAILY olmesartan 20 mg tablet 20 mg PO DAILY Qty: 90 1RF amlodipine 5 mg tablet See Rx Instructions .ROUTE .COMPLEX Qty: 90 0RF Dose Instruction: TAKE 1 TABLET BY MOUTH DAILY Rx Instructions: TAKE 1 TABLET BY MOUTH DAILY pravastatin 80 mg tablet See Rx Instructions .ROUTE .COMPLEX Qty: 90 0RF Dose Instruction: TAKE 1 TABLET BY MOUTH DAILY Rx Instructions: TAKE 1 TABLET BY MOUTH DAILY Date of admission: 04/10/25 13:19 Primary Care Provider: Marcin Arenas Admitting Provider: Christiano Kelley Attending physician on admission: Christiano Kelley Condition: Stable
[2025-04-12] MEDS: ACETAMINOPHEN 325 MG TABLET 650 MG PO (08:05)
[2025-04-12] MEDS: PRAVASTATIN SODIUM 20 MG TABLET 80 MG PO (08:05)
[2025-04-12] MEDS: OLMESARTAN MEDOXOMIL 20 MG TABLET PO (08:06)
[2025-04-12] MEDS: OMEGA 3 POLYUNSAT FATTY ACIDS 1 GM CAP 2 GM PO (08:06)
[2025-04-12] MEDS: OPTI-GEN TAB 1 TABLET PO (08:06)
[2025-04-12] MEDS: CHOLECALCIFEROL 5,000 UNITS TABLET 5000 UNITS PO (08:06)
[2025-04-12] MEDS: APIXABAN 5 MG TABLET 10 MG PO (08:07)
[2025-04-12] MEDS: amLODIPine BESYLATE 5 MG TABLET PO (08:07)
[2025-04-12] MEDS: PANTOPRAZOLE 40 MG TABLET PO (09:53)
[2025-04-12] MEDS: AZITHROMYCIN 250 MG TABLET 500 MG PO (13:06)
== END 2025-04-12 15:48 | disposition home or self-care (01) | DRG 175 ==
LOC: ANHED 10:37 → ANHIMU 13:07
PROVIDERS: Nurse Practitioner; Student in an Organized Health Care Education/Training Program; Admitting Provider General Practice; Emergency Provider Physician Assistant; PCP Family Medicine; Visit Provider General Practice
DX: I26.99 Other pulmonary embolism without acute cor pulmonale (principal); J18.9 Pneumonia, unspecified organism; I82.452 Acute embolism and thrombosis of left peroneal vein; I10 Essential (primary) hypertension; E78.5 Hyperlipidemia, unspecified; K21.9 Gastro-esophageal reflux disease without esophagitis; K44.9 Diaphragmatic hernia without obstruction or gangrene; M81.0 Age-related osteoporosis without current pathological fracture; F41.9 Anxiety disorder, unspecified; Z20.822 Contact with and (suspected) exposure to COVID-19; Z87.891 Personal history of nicotine dependence
CPT/HCPCS: 36415; 71046; 71275; 74177; 80048; 80053; 83735; 83880; 84484; 85025; 85027; 85730; 87637; 93005; 93306; 93970; 96374; 96375; 99285; A9270; G0378; J0696; J1644; Q9967

== ENCOUNTER 2025-05-21 12:19 | Outpatient (CLI) | payer MEDICARE, SELFPAY ==
--- NOTE | ~2025-05-21 | MM_ITS ---
EXAMINATION: MM screening parker BI w júnior HISTORY: Screening mammogram TECHNIQUE: Craniocaudal and mediolateral oblique 3-D tomosynthesis images were obtained and synthetic 2-D images were generated. CAD analysis was submitted and interpreted. COMPARISON: 05/17/2024, 04/06/2023, 03/16/2023, 12/18/2021 BREAST PARENCHYMAL COMPOSITION:Not Dense. The breasts are almost entirely fatty FINDINGS: No suspicious mass, calcification, or architectural distortion are identified in either velia ast to suggest malignancy. There has been no suspicious interval change. IMPRESSION: No mammographic evidence of malignancy. Recommend routine screening mammography in one year. BI-RADS Category 1: Negative Reviewed, dictated and finalized at location .
--- OUTSIDE RECORDS SUMMARY | 2025-05-21 12:22 | XMS_ITS | Clinical Summary ---
Author Organization [facility] Ajith patel Rissa Address [address] [place] [address] Care Team Providers Care Armored Car Driver Name Role Phone Unavailable Primary Care Provider Unavailabl e Social History Tobacco Use Types Packs/Day Years Used Date Smoking Tobacco: Never Assessed Comments Unknown Sex and Gender Information Value Date Recorded Sex Assigned at Not on file Legal Sex Female 3:04 PM CDT Gender Identity Not on file Sexual Orientation Not on file Plan of Treatment Upcoming Encounters Date Type Department Care Team (Late st Contact Info) Description 07/18/2025 11:30 AM CDT Office Visit [facility] Oncology and Hematology - [place] [address] [place] [address] Angélica Baum MD [address] [place] [address] Health Maintenance Due Date Last Done Comments DTAP/TDAP/TD VACCINES (1 - Tdap) 1969 COLORECTAL SCREENING 1995 Colorectal Cancer Screening 1995 FIT-DNA Q 3 years 1995 FIT/FOBT Q 1 year 1995 Flex Sig/CT Colonography Q 5 years 1995 PNEUMOCOCCAL VACCINE 50+ YEARS (1 of 1 - PCV) 03/30/20 00 ZOSTER VACCINE (1 of 2) 2000 OSTEOPOROSIS SCREENING 2015 INFLUENZA VACCINE (#1) 2024 RSV VACCINE (60+ or ) (1 - 1-dose 75+ series) 2025 Insurance [employer] PPO MCR
== END 2025-05-21 12:20 | disposition home or self-care (01) ==
LOC: CHSIMG 12:20
PROVIDERS: PCP Family Medicine; Visit Provider Obstetrics & Gynecology
DX: Z12.31 Encounter for screening mammogram for malignant neoplasm of breast (principal)
CPT/HCPCS: 77063; 77067

== ENCOUNTER 2025-07-09 09:33 | Outpatient (CLI) | payer MEDICARE, SELFPAY ==
--- NOTE | ~2025-07-09 | XR_ITS ---
EXAM/ PROCEDURE: XR ankle RT 2V - 07/09/2025 10:25 CDT HISTORY: 75 years old Female with M25.571 - Pain in right ankle and joints of right foot COMPARISON: None available TECHNIQUE: Three view(s) FINDINGS/ IMPRESSION: There are no fractures or dislocations.Joint space narrowing, subchondral sclerosis, subchondral cyst formation and osteophyte formation, compatible with mild osteoarthritis. Calcaneal enthesopathy. Reviewed, dictated and finalized at location A.
--- NOTE | ~2025-07-09 | US_ITS ---
US venous doppler [facility] - 07/09/2025 10:38 CDT History: 75 years old Female with left lower extremity pain and swelling. Real-time sonographic images of the left lower extremity venous system were obtained. Color Doppler sonography and spectral waveform analysis were performed. No prior studies for comparison. The left sapheno-femoral junctions are patent. The left common femoral, superficial femoral, poplit eal and posterior tibial veins are compressible and without evidence of echogenic thrombus. 2.3 x 1.2 x 1.0 cm hypoechoic area in the mid/upper calf region. Impression: No evidence of deep venous thrombosis 2.3 x 1.2 x 1.0 cm hypoechoic area in the mid/upper calf region. This should be amenable to percutane ous biopsy, if clinically indicated. Clinical correlation is recommended Reviewed, dictated and finalized at location A. Impression: No evidence of deep venous thrombosis 2.3 x 1.2 x 1.0 cm hypoechoic area in the mid/upper calf region. This should be amenable to percutaneous biopsy, if clinically indicated. Clinical correlation is recommended
--- OUTSIDE RECORDS SUMMARY | 2025-07-09 10:12 | XMS_ITS | Clinical Summary ---
Author Organization [facility] Ajith patel Jeanine Address [address] [place] [address] Care Team Providers Care Flight Operations Inspector Name Role Phone Unavailable Primary Care Provider [...] Description 07/18/2025 11:30 AM CDT Office Visit [facility] Oncology and Hematology - [place] [address] [place] [address] Angélica Baum MD [address] [place] [address] Health Maintenance Due Date Last Done Comments DTAP/TDAP/TD VACCINES (1 - Tdap) 1969 COLORECTAL SCREENING 1995 Colorectal Cancer Screening 1995 FIT-DNA Q 3 years 1995 FIT/FOBT Q 1 year 1995 Flex Sig/CT Colonography Q 5 years 1995 PNEUMOCOCCAL VACCINE 50+ YEARS (1 of 1 - PCV) 03/30/20 00 ZOSTER VACCINE (1 of 2) 2000 OSTEOPOROSIS SCREENING 2015 RSV VACCINE (60+ or ) (1 - 1-dose 75+ series) 2025 INFLUENZA VACCINE (#1) 2025 Insurance [employer] PPO MCR
== END 2025-07-09 09:34 | disposition home or self-care (01) ==
PROVIDERS: PCP Nurse Practitioner Family; Visit Provider Nurse Practitioner Family
DX: I82.452 Acute embolism and thrombosis of left peroneal vein (principal); M25.571 Pain in right ankle and joints of right foot
CPT/HCPCS: 73600; 93971

== ENCOUNTER 2025-08-11 08:49 | Emergency (ER) | payer MEDICARE, SELFPAY ==
--- NOTE | ~2025-08-11 | US_ITS ---
EXAMINATION: US venous doppler [facility], 08/11/2025 13:31 CDT HISTORY: r/o dvt COMPARISON: None Technique: Vilchis-scale and color Doppler images were attempted of the lower saphenofemoral junction, common femoral vein,superficial femoral vein, proximal deep femoral vein, proximal deep femoral vein, popliteal vein and posterior tibial veins. Findings: Deep Venous System:Normal flow, augmentation and compressibility. No echogenic thrombus identified. Superficial Venous SystemNo superficial thrombophlebitis. Soft tissues: Soft tissues are unremarkable. Impression: Negative for DVT. Reviewed, dictated and finalized at location A. Impression: Negative for DVT.
[2025-08-11 09:00] VITALS: BP 116/67; PULSE 79; RESP 18; TEMP 36.4; O2SAT 95
[2025-08-11 10:53] VITALS: BP 112/65; PULSE 73; RESP 20; TEMP 36.7; O2SAT 98
--- OUTSIDE RECORDS SUMMARY | 2025-08-11 11:08 | XMS_ITS | Clinical Summary ---
Author Organization [facility] Ajith Kwok Address [address] [place] [address] Care Team Providers Care Air Cargo Agent Name Role Phone Unavailable Primary Care Provider Unavailabl e Allergies No known active allergies Medications amLODIPine (NORVASC) 5 mg tablet Take 1 Tablet by mouth daily. Active esomeprazole (NexIUM) 20 mg Capsule, Delayed Release(E.C.) Take 1 Capsule by mouth daily. 5 Active olmesartan (BENICAR) 20 mg tablet Take 1 Tablet by mouth daily. Active pravastatin (PRAVACHOL) 80 mg tablet Take 1 Tablet by mouth daily. Active denosumab (PROLIA) 60 mg/mL Syringe Inject 60 mg by subcutaneous injection one time only. Active CHOLECALCIFEROL , VITAMIN D3, ORAL Take by mouth. Activ e OMEGA-3 FATTY ACIDS-FISH OIL ORAL Take by mouth. Activ e apixaban (ELIQUIS) 2.5 mg tablet Take 1 Tablet (2.5 mg) by mouth 2 times daily. 180 Tablet 3 5 10/16/20 25 Active Active Problems Problem Noted Date Diagnosed Date Leg mass, left 07/18/2025 Acute deep vein thrombosis (DVT) of left peronea l vein 07/18/2025 Acute pulmonary embolism without acute cor pulmo nale 07/18/2025 Encounters Date Type Department Care Team Description 08/07/2025 External Device Data [facility] ABSTRACTION Provider, Abstract 08/07/2025 External Device Data [facility] ABSTRACTION Provider, Abstract 07/24/2025 External Device Data [facility] ABSTRACTION Provider, Abstract 07/24/2025 External Device Data [facility] ABSTRACTION Provider, Abstract 07/24/2025 External Device Data [facility] ABSTRACTION Provider, Abstract 07/19/2025 Telephone [facility] Oncology and Hematology [facility] [address] [place] [id number] Ronal Villanueva MD CT appt (LVM to inform patient of CT, scheduled at [facility]) 07/18/2025 11:30 AM CDT Office Visit [facility] Oncology and [facility] [address] [place] [id number] Angélica Baum MD Leg mass, left (Primary Dx); Acute deep vein thrombosis (DVT) of left peroneal vein (CMS/HCC); Acute pulmonary embolism without acute cor pulmonale, unspecified pulmonary embolism type (CMS/HCC) from Last 3 Months Family History Medical History Relation Name Comments No Known Problems Brother 1 Peripheral vascular disease Brother 2 No Known Problems Brother 3 No Known Problems Brother 4 Acute lymphoblastic leukemia Child 1 No Known Problems Child 2 No Known Problems Child 3 Heart Disease Father Lung Cancer Mother Relation Name Status Comments Brother 1 Alive Brother 2 Alive Brother 3 Alive Brother 4 Alive Child 1 Child 2 Alive Child 3 Alive Father Mother Social History Tobacco Use Types Packs/Day Years Used Date Smoking Tobacco: Former Cigarettes 1 43 0 11/22/1970 - 11/22/2013 Smokeless Tobacco: Never Tobacco Cessation:Counseling Given: Not Answered Alcohol Use Standard Drinks/Week Comments Not Currently 0 (1 standard drink = 0.6 oz pur e alcohol) Socially Comments Unknown Sex and Gender Information Value Date Recorded Sex Assigned at Not on file Legal Sex Female 3:04 PM CDT Gender Identity Not on file Sexual Orientation Not on file Last Filed Vital Signs Vital Sign Reading Time Taken Comments Blood Pressure 134/81 07/18/2025 11:08 AM CDT Pulse 75 07/18/2025 11:08 AM CDT Temperature 36.8 C (98.2 F) 07/18/2025 11:08 AM CDT Respiratory Rate 15 07/18/2025 11:08 AM CDT Oxygen Saturation 93% 07/18/2025 11:08 AM CDT Inhaled Oxygen Concentration - - Weight 81.9 kg (180 lb 9.6 oz) 07/18/2025 11:08 AM CDT Height 160 cm (5' 3) 07/18/2025 11:08 AM CDT Body Mass Index 31.99 07/18/2025 11:08 AM CDT Plan of Treatment Upcoming Encounters Date Type Department Care Team (Late st Contact Info) Description 08/22/2025 4:30 PM CDT Telephone Check Up [facility] Oncology and Hematology - [place] [address] [facility] [address] [place] [address] Ronal Villanueva MD [address] [facility] [employer] [address] [place] [address] Health Maintenance Due Date Last Done Comments COLORECTAL SCREENING 1995 Colorectal Cancer Screening 1995 FIT-DNA Q 3 years 1995 FIT/FOBT Q 1 year 1995 Flex Sig/CT Colonography Q 5 years 1995 Lung Cancer Screening 2000 OSTEOPOROSIS SCREENING 2015 PNEUMOCOCCAL VACCINE 50+ YEA RS (2 of 2 - PCV20 or PCV21) 07/13/2018 07/13/2017 DTAP/TDAP/TD VACCINES (1 - Tdap) 08/15/2019 08/14/20 19, 08/14/2019 RSV VACCINE (60+ or ) (1 - 1-dose 75+ series) 2025 INFLUENZA VACCINE (#1) 2025 4, 08/20/2023, 08/04/2022, Additional history exists ZOSTER VACCINE Completed 07/14/2021, 05/14/[address]21 [place] [address] [employer] PPO [facility]
--- NOTE | 2025-08-11 11:16 | ED.EXTPRO ---
HPI - Extremity Problem General Chief complaint: Extremity Problem,Nontraumatic Stated complaint: left calf pain Time Seen by Provider: 08/11/25 11:05 Source: patient Mode of arrival: ambulatory Limitations: no limitations History of Present Illness HPI Narrative: History of left lower leg deep vein thrombosis April 10, 2025 has been on Eliquis 5 mg b.i.d., did does drop down to 2.5 mg b.i.d. 6 days ago. Last night patient noticed pain at the back of the left lower leg which is different than usual. She denies any recent trauma or new physical activity or shortness of breath or chest pain. Related Data Home Medications ?Medication ?Instructions ?Recorded ?Confirmed ?Last Taken ?Type cholecalciferol (vitamin D3) 125 5,000 unit PO DAILY 11/03/19 05/23/25 04/10/25 History mcg (5,000 unit) disintegrating tablet omega-3 250 kv-tkg-ups-lutein 2.5 250 cap PO DAILY 11/03/19 05/23/25 04/10/25 History mg-zeaxanthin 0.5 mg capsule ([place] [place] [employer]) omega-3 fatty acids 1,000 mg 2,000 mg PO DAILY 01/07/23 05/23/25 04/10/25 History capsule (Fish Oil Concentrate) peg 400-propylene glycol 0.4 %-0.3 1 drp EACH EYE DAILY PRN Dry Eyes 05/02/24 05/23/25 04/10/25 History % eye drops (Systane Ultra) denosumab 60 mg/mL subcutaneous 60 mg subcut [id number] 01/30/25 05/23/25 Unknown History syringe (Prolia) apixaban 2.5 mg tablet (Eliquis) mg PO 08/08/25 Unknown History Allergies Allergy/AdvReac Type Severity Reaction Status Date / Time No Known Allergies Allergy Verified 08/08/25 08:50 Review of Systems Review of Systems: All systems reviewed & are unremarkable except as noted in HPI and below PMFSH Past Medical History Medical History Pulmonary embolism 04/10/2025, post-travel DVT (deep venous thrombosis) 04/10/2025, post-travel GERD (gastroesophageal reflux disease) Age related osteoporosis Mixed hyperlipidemia Essential (primary) hypertension Shingles Anxiety History of vaginal delivery x 3 Surgical History Surgical History Hx of tubal ligation Family History Family History Father Family history of coronary artery disease Family history of hypercholesterolemia Hypertension Grandparent Family history of coronary artery disease Mother Family history of lung cancer Social History Social History Smoking packs per day: 1 Smoking cigarettes per day: 20.0 Years smoked: 11 Smoking pack-years: 11.00 Smoking status: Former smoker Tobacco type: cigarettes Second hand tobacco smoke exposure: No Smoking end date: 04/10/25 Alcohol intake: never Substance use: never Substance use type: does not use Do You Feel Safe in your Home?: Yes Lack of Transportation: No Lack of Food: Never True Current Housing: I Do Not Have Housing Concerned About Future Housing: No Difficulty Paying Gas/Electric Bills: No Difficulty Paying for Meds: No Currently Unemployed: No Education: Bachelor's Degree Difficulty w/ Childcare or Family Care: No Living arrangements: with family Spiritual care concerns: No Exam Narrative: General appearance: Well-developed, well-nourished Skin: Normal color Head: Normocephalic, nontraumatic Eyes: Clear conjunctiva ENT: Oropharynx normal, ears normal, nose normal Neck: Supple, nontender Chest and respiratory: Airway patent, no respiratory distress, no accessory muscle use Heart: Regular rate/rhythm Abdomen: Soft, nontender, no organomegaly, quiet bowel sounds Vascular: Normal peripheral pulses, normal capillary refill. Musculoskeletal: Diffuse tenderness left calf muscle, slightly larger than the right 1. No bruises, no swelling, no deformity Neurologic: Alert and oriented ?3, RIPSAWYER is normal as tested, no gross motor deficit Course Vital Signs Vital signs: Vital Signs Temperature 36.4 C L 08/11/25 09:00 Pulse Rate 79 08/11/25 09:00 Respiratory Rate 18 08/11/25 09:00 Blood Pressure 116/67 08/11/25 09:00 Pulse Oximetry 95 08/11/25 09:00 Oxygen Delivery Room Air 08/11/25 09:00 Temperature 36.7 C 08/11/25 13:23 Pulse Rate 74 08/11/25 13:23 Respiratory Rate 17 08/11/25 13:23 Blood Pressure 131/74 08/11/25 13:23 Pulse Oximetry 95 08/11/25 13:23 Oxygen Delivery Room Air 08/11/25 09:00 MDM - Extremity (Nontraumatic) Imaging Data Radiologist's impression: Impressions Venous Doppler Study 08/11/25 14:11 Impression: Negative for DVT. Critical Care Time Critical Care Time Critical Care Time: No Discharge Plan Discharge Clinical Impression: Leg pain Patient Disposition: Home Condition: Stable Instructions: Leg Pain (ED) Additional Instructions: RETURN IF SYMPTOMS ARE WORSENING , CALL YOUR FAMILY PHYSICIAN FOR APPOINTMENT, TAKE TYLENOL NEEDED FOR ACHES AND PAIN, CONTINUE HOME MEDICATIONS. Patient Language: Macedonian Prescriptions: No Action Systane Ultra 0.4-0.3 % drops 1 drp EACH EYE DAILY PRN (Reason: Dry Eyes) Prolia 60 mg/mL syringe 60 mg subcut [id number] Eliquis 2.5 mg tablet PO guaifenesin [Mucus Relief ER] 600 mg Tablet Extended Release 12hr 600 mg PO Q12HR PRN (Reason: Congestion) Qty: 15 0RF cholecalciferol (vitamin D3) 5,000 unit tablet,disintegrating 5,000 unit PO DAILY [facility] 250-2.5-0.5 mg capsule 250 cap PO DAILY omega-3 fatty acids [Fish Oil Concentrate] 1,000 mg capsule 2,000 mg PO DAILY pravastatin 80 mg tablet See Rx Instructions .ROUTE .COMPLEX Qty: 90 0RF Dose Instruction: TAKE 1 TABLET BY MOUTH DAILY Rx Instructions: TAKE 1 TABLET BY MOUTH DAILY amlodipine 5 mg tablet See Rx Instructions .ROUTE .COMPLEX Qty: 90 0RF Dose Instruction: TAKE 1 TABLET BY MOUTH DAILY Rx Instructions: TAKE 1 TABLET BY MOUTH DAILY esomeprazole magnesium 20 mg capsule,delayed release(DR/EC) 20 mg PO DAILY Qty: 90 1RF olmesartan 20 mg tablet 20 mg PO DAILY Qty: 90 1RF Follow-up/Referrals: Marcin Arenas MD [Primary Care Provider, Family Practice]
[2025-08-11 13:23] VITALS: BP 131/74; PULSE 74; RESP 17; TEMP 36.7; O2SAT 95
== END 2025-08-11 15:07 | disposition home or self-care (01) ==
PROVIDERS: Emergency Provider Emergency Medicine; PCP Family Medicine
DX: M79.605 Pain in left leg (principal); Z87.891 Personal history of nicotine dependence; Z79.01 Long term (current) use of anticoagulants; Z86.718 Personal history of other venous thrombosis and embolism
CPT/HCPCS: 93970; 99284

== ENCOUNTER 2025-09-15 07:37 | Outpatient (CLI) | payer MEDICARE, SELFPAY ==
--- NOTE | ~2025-09-15 | MR_ITS ---
EXAMINATION: MR lower leg LT wo/w con DATE: 09/15/2025 09:03 INDICATION: Left leg mass on prior ultrasound TECHNIQUE: Magnetic resonance imaging (MRI) of the left lower leg was performed without and with 16 mL Multihance intravenous contrast. Sequences included axial, sagittal and coronal T1-weighted FSE and fluid sensitive FSE STIR, axial T1-weighted FS FSE and post contrast axial, sagittal and coronal T1-weighted FS FSE were also obtained. COMPARISON: Ultrasound dated 07/09/2025 FINDINGS: Normal bone marrow signal throughout. No asymmetric muscle atrophy or abnormal muscle signal in the left calf. No abnormal masses or fluid collections identified. Comparison with prior ultrasound suggests the mass of concern at the mid to distal left calf along the left peroneal vasculature may have r epresented a previous on post intra-soleal branch of the left peroneal vein which appears contrast opacified in the current study. No definitive venous thrombosis appreciated IMPRESSION: 1. No abnormal masses or fluid collections identified. Comparison with prior ultrasound suggests the lesion of concern on the prior study may have represented a previously thrombosed branch of the left peroneal vein. Reviewed, dictated and finalized at location A. IMPRESSION: 1. No abnormal masses or fluid collections identified. Comparison with prior ul trasound suggests the lesion of concern on the prior study may have represented a previously thrombosed branch of the left peroneal vein.
== END 2025-09-15 07:38 | disposition home or self-care (01) ==
PROVIDERS: PCP Family Medicine; Visit Provider Internal Medicine Hematology & Oncology
DX: R22.42 Localized swelling, mass and lump, left lower limb (principal)
CPT/HCPCS: 73720; A9577